=== PATIENT | female | born 1985 | race Caucasian/White ===

== ENCOUNTER 2017-06-27 21:00 | Emergency (ER) | payer BC ==
[2017-06-27 21:12] VITALS: TEMP 98.2; BMI 33.3
--- NOTE | 2017-06-27 22:52 | PDOC ---
History of Present Illness - General History Source: Patient Exam Limitations: No Limitations <Gianna Fofana - Last Filed: 06/28/17 02:00> <NedLolisalazar Dotson - Last Filed: 06/28/17 02:13> - General Chief Complaint: Palpitations Stated Complaint: WEAKNESS Time Seen by Provider: 06/27/17 22:24 - History of Present Illness Initial Comments: 06/28/17 00:36 The patient is a 31 year old female with a significant past medical history of CHARGE syndrome, multiple eye surgeries, renal transplant (tacrolimus and mycophenolate), and ASD repair (32 years ago) who presents to the ED with palpitations since this morning. The patient reports palpitations since waking up this morning. She states the palpitations worsen with ambulation and she also becomes short of breath, and symptoms are better at rest. Patient reports similar symptoms several months ago. Denies fever or chills. Denies calf pain or swelling. Denies abdominal pain, nausea, vomiting, or diarrhea. Denies chest pain. Denies any other symptoms. PCP: Dr. Thurman (Gianna Fofana) Past History <Gianna Fofana - Last Filed: 06/28/17 02:00> - Past Medical History Anemia: No Asthma: No Cancer: No Cardiac Disorders: Yes (congenital murmur) CVA: No COPD: No CHF: No Dementia: No Diabetes: No GI Disorders: No Disorders: Yes (BILATERAL KIDNEY TRANSPLANT, RIGHT KIDNAY NOT FUNCTIONAL, REJECTED) HTN: No Hypercholesterolemia: No Liver Disease: No Seizures: No Thyroid Disease: No - Surgical History Abdominal Surgery: No Appendectomy: No Cardiac Surgery: Yes (closure for congenital murmur AT 1 YR OF AGE) Cholecystectomy: No Lung Surgery: No Neurologic Surgery: No Orthopedic Surgery: Yes (bilateral hip replacements, right knee surgery) - Reproductive History (#): 1 Para: 0 Cervical CA: No Dysfunctional Uterine Bleeding: No Ectopic : No Endometrial CA: No Polycystic Ovaries: No Therapeutic (s) & number: No Tubal Ligation: No Spontaneous : 0 - Immunization History Immunization Up to Date: Yes - Suicide/Smoking/Psychosocial Hx Smoking Status: No Smoking History: Never smoked Have you smoked in the past 12 months: No Number of Cigarettes Smoked Daily: 0 Information on smoking cessation initiated: No Hx Alcohol Use: No Drug/Substance Use Hx: No Substance Use Type: None Hx Substance Use Treatment: No <Loli Marino - Last Filed: 06/28/17 02:13> - Past Medical History Allergies/Adverse Reactions: Allergies Allergy/AdvReac Type Severity Reaction Status Date / Time fariba Allergy Unknown Verified 06/27/17 21:12 No Known Drug Allergies Allergy Verified 06/27/17 21:12 Home Medications: Ambulatory Orders Tacrolimus [Prograf] 3 mg PO BID 03/02/15 Ferrous Sulfate 325 mg PO BID 11/02/15 Mycophenolate Sodium [Myfortic] 360 mg PO BID 11/02/15 Prednisone 5 mg PO DAILY 11/02/15 Oxycodone HCl/Acetaminophen [Percocet 5/325 -] 1 tab PO Q6H #16 tablet MDD 4 Cardiac Specific PMH - Complaint Specific PMHX Pacemaker: No <Loli Marino - Last Filed: 06/28/17 02:13> Review of Systems - Review of Systems Able to Perform ROS?: Yes All Other Systems: Reviewed and Negative <Gianna Fofana - Last Filed: 06/28/17 02:00> <Loli Marino - Last Filed: 06/28/17 02:13> - Review of Systems Comments:: 06/28/17 00:36 CONSTITUTIONAL: Absent: fever, chills, diaphoresis, generalized weakness, malaise, loss of appetite HEENT: Absent: rhinorrhea, nasal congestion, throat pain, throat swelling, difficulty swallowing, mouth swelling, ear pain, eye pain, visual Changes CARDIOVASCULAR: + palpitations, shortness of breath Absent: chest pain, syncope, irregular heart rate, lightheadedness, peripheral edema RESPIRATORY: Absent: cough, dyspnea with exertion, orthopnea, wheezing, stridor, hemoptysis GASTROINTESTINAL: Absent: abdominal pain, abdominal distension, nausea, vomiting, diarrhea, constipation, melena, hematochezia GENITOURINARY: Absent: dysuria, frequency, urgency, hesitancy, hematuria, flank pain, genital pain MUSCULOSKELETAL: Absent: myalgia, arthralgia, joint swelling SKIN: Absent: rash, itching, pallor HEMATOLOGIC/IMMUNOLOGIC: Absent: easy bleeding, easy bruising, lymphadenopathy, frequent infections ENDOCRINE: Absent: unexplained weight gain, unexplained weight loss, heat intolerance, cold intolerance NEUROLOGIC: Absent: headache, focal weakness or paresthesias, dizziness, unsteady gait, seizure, mental status changes, bladder or bowel incontinence PSYCHIATRIC: Absent: anxiety, depression, suicidal or homicidal ideation, hallucinations. (Gianna Fofana) *Physical Exam <Gianna Fofana - Last Filed: 06/28/17 02:00> <Loli Marino - Last Filed: 06/28/17 02:13> - Vital Signs Last Vital Signs Temp Pulse Resp BP Pulse Ox 98.2 F 97 H 22 145/80 100 06/27/17 21:06 06/27/17 21:06 06/27/17 21:06 06/27/17 21:06 06/27/17 21:06 - Physical Exam Comments: 06/28/17 00:37 GENERAL: Well developed, well nourished. Awake and alert. No acute distress. HEENT: Normocephalic, atraumatic. PERRLA, EOMI. No conjunctival pallor. Sclera are non- icteric. Moist mucous membranes. Oropharynx is clear. NECK: Supple. Full ROM. No JVD. Carotid pulses 2+ and symmetric, without bruits. No thyromegaly. NCo lymphadenopathy. CARDIOVASCULAR:+ Systolic murmur Regular rate and rhythm. No rubs, or gallops. Distal pulses are 2+ and symmetric. PULMONARY: No evidence of respiratory distress. Lungs clear to auscultation bilaterally. No wheezing, rales or rhonchi. ABDOMINAL: Soft. Non-tender. Non-distended. No rebound or guarding. No organomegaly. Normoactive bowel sounds. MUSCULOSKELETAL Normal range of motion at all joints. No bony deformities or tenderness. No CVA tenderness. EXTREMITIES: No cyanosis. No clubbing. No edema. No calf tenderness. SKIN: Warm and dry. Normal capillary refill. No rashes. No jaundice. NEUROLOGICAL: Alert, awake, appropriate. Cranial nerves 2-12 intact. No deficits to light touch and temperature in face, upper extremities and lower extremities. No motor deficits in the in face, upper extremities and lower extremities. Normoreflexic in the upper and lower extremities. Normal speech. Toes are down- going bilaterally. Gait is normal without ataxia. PSYCHIATRIC: Cooperative. Good eye contact. Appropriate mood and affect. (Gianna Fofaan) Heart Score/ECG Review <Gianna Fofana - Last Filed: 06/28/17 02:00> <Loli Marino - Last Filed: 06/28/17 02:13> #1 06/28/17 02:01 Vent. rate 100 bpm WI interval 132 ms QRS duration 88 ms Normal sinus rhythm (Gianna Fofana) ED Treatment Course - LABORATORY CBC & Chemistry Diagram: 06/28/17 00:14 06/28/17 00:14 <Gianna Fofana - Last Filed: 06/28/17 02:00> - LABORATORY CBC & Chemistry Diagram: 06/28/17 00:14 06/28/17 00:14 <Loli Marino - Last Filed: 06/28/17 02:13> - ADDITIONAL ORDERS Additional order review: Laboratory Results 06/28/17 06/28/17 06/28/17 00:14 00:14 00:14 PT with INR 11.30 INR 1.00 Sodium 140 Potassium 4.2 Chloride 109 H Carbon Dioxide 23 Anion Gap 8 BUN 27 H Creatinine 1.7 H Creat Clearance w eGFR 34.61 Random Glucose 111 H Calcium 8.9 Magnesium 2.1 Total Bilirubin 0.1 L D AST 9 L ALT 17 Alkaline Phosphatase 98 Creatine Kinase 61 Troponin I < 0.02 Total Protein 8.2 Albumin 3.2 L Serum , Qual Negative 06/28/17 00:14 RBC 3.53 L MCV 76.3 L MCHC 31.7 L RDW 14.7 D MPV 7.4 L Neutrophils % 70.0 Lymphocytes % 22.7 Monocytes % 6.0 Eosinophils % 0.6 Basophils % 0.7 - RADIOLOGY Radiology Studies Ordered: Category Date Time Status CHEST PA & LAT [RAD] Stat Radiology 06/28/17 01:06 Taken - Medications Given in the ED: ED Medications Discontinued Medications Generic Name Dose Route Start Last Admin Trade Name Freq PRN Reason Stop Dose Admin Aspirin 162 mg 06/27/17 22:53 06/28/17 00:18 Asa - PO 06/27/17 22:54 162 mg ONCE ONE Administration *DC/Admit/Observation/Transfer <Gianna Fofana - Last Filed: 06/28/17 02:00> <Loli Marino - Last Filed: 06/28/17 02:13> Diagnosis at time of Disposition: Palpitations - Discharge Dispostion Disposition: HOME Condition at time of disposition: Stable - Referrals Referrals: Jaylon Thurman MD [Primary Care Provider] - Baron Kulkarni MD [Staff Physician] - - Patient Instructions Printed Discharge Instructions: DI for Palpitations Additional Instructions: Please see your doctor this week Return for any worsening symptoms - Post Discharge Activity - Attestations Scribe Attestion: 06/28/17 00:37 Documentation prepared by Gianna Fofana, acting as medical pathologist for Loli Marino MD (Gianna Fofana)
[2017-06-27] MEDS ORDERED: ASPIRIN 81 MG CHEWABLE TABLETS PO ONE (22:53)
[2017-06-28] MEDS ORDERED: ASPIRIN 81 MG CHEWABLE TABLETS ONE (00:09)
[2017-06-28 00:30] LABS: BASO % 0.7 % (0-2.0); EOS % 0.6 % (0-4.5); HEMATOCRIT 26.9 % (32.4-45.2); HEMOGLOBIN 8.5 GM/dL (10.7-15.3); LYMPH % 22.7 % (8-40); MCH 24.2 pg (25.7-33.7); MCHC 31.7 g/dl (32.0-36.0); MEAN CELL VOLUME 76.3 fl (80-96); MEAN PLT VOLUME 7.4 fl (7.5-11.1); PLATELET COUNT 339 K/MM3 (134-434); RBC 3.53 M/mm3 (3.60-5.2); RDW 14.7 % (11.6-15.6); WHITE BLOOD COUNT 5.4 K/mm3 (4.0-10.0)
[2017-06-28 00:42] LABS: PROTHROMBIN TIME (PATIENT) 11.3 SEC (9.98-11.88)
[2017-06-28 00:53] LABS: ALBUMIN 3.2 g/dl (3.4-5.0); ANION GAP 8 (8-16); BILIRUBIN,TOTAL 0.1 mg/dL (0.2-1.0); BLOOD UREA NITROGEN 27 mg/dL (7-18); CALCIUM 8.9 mg/dL (8.5-10.1); CHLORIDE 109 mmol/L (98-107); CO2 23 mmol/L (21-32); CREATININE 1.7 mg/dL (0.55-1.02); GLUCOSE,RANDOM 111 mg/dL (74-106); MAGNESIUM 2.1 mg/dL (1.8-2.4); POTASSIUM 4.2 mmol/L (3.5-5.1); SGOT/AST 9 U/L (15-37); SGPT/ALT 17 U/L (12-78); SODIUM 140 mmol/L (136-145); TOT PROT 8.2 g/dl (6.4-8.2)
[2017-06-28 00:56] LABS: ALK PHOS 98 U/L (45-117)
[2017-06-28 02:42] VITALS: BP 104/80; PULSE 87
--- NOTE | 2017-06-28 13:02 | EKG ---
Test Reason : Blood Pressure : / mmHG Vent. Rate : 100 BPM Atrial Rate : 100 BPM P-R Int : 132 ms QRS Dur : 088 ms QT Int : 342 ms P-R-T Axes : 012 034 046 degrees QTc Int : 441 ms NORMAL SINUS RHYTHM NORMAL ECG WHEN COMPARED WITH ECG OF 02-NOV-2015 21:04, NO SIGNIFICANT CHANGE WAS FOUND Confirmed by AMBER HERNANDEZ MD ([id number]) on 06/28/2017 1:01:56 PM Referred By: Confirmed By:AMBER HERNANDEZ MD
== END 2017-06-28 02:42 | disposition home or self-care (01) ==
LOC: JER 21:00
DX: R00.2 Palpitations (principal); Q89.8 Other specified congenital malformations; Z94.0 Kidney transplant status
CPT/HCPCS: 36415; 71046-TC; 80053; 82550; 83735; 84484; 84703; 85025; 85610; 93005; 93010; 99282-25

== ENCOUNTER 2017-07-18 23:29 | Emergency (ER) | payer BC ==
[2017-07-18 23:45] VITALS: BP 154/90; PULSE 110; TEMP 99.3; BMI 30.1
--- NOTE | 2017-07-19 00:28 | PDOC ---
History of Present Illness - General Stated Complaint: FATIGUE Time Seen by Provider: 07/19/17 00:27 Past History - Past Medical History Allergies/Adverse Reactions: Allergies Allergy/AdvReac Type Severity Reaction Status Date / Time stoneypberry Allergy Unknown Verified 07/18/17 23:41 No Known Drug Allergies Allergy Verified 07/18/17 23:41 Home Medications: Ambulatory Orders Tacrolimus [Prograf] 3 mg PO BID 03/02/15 Mycophenolate Sodium [Myfortic] 360 mg PO BID 11/02/15 Prednisone 5 mg PO DAILY 11/02/15 Anemia: No Asthma: No Cancer: No Cardiac Disorders: Yes (congenital murmur) CVA: No COPD: No CHF: No Dementia: No Diabetes: No GI Disorders: No Disorders: Yes (BILATERAL KIDNEY TRANSPLANT, RIGHT KIDNAY NOT FUNCTIONAL, REJECTED) HTN: No Hypercholesterolemia: No Liver Disease: No Seizures: No Thyroid Disease: No - Surgical History Abdominal Surgery: No Appendectomy: No Cardiac Surgery: Yes (closure for congenital murmur AT 1 YR OF AGE) Cholecystectomy: No Lung Surgery: No Neurologic Surgery: No Orthopedic Surgery: Yes (bilateral hip replacements, right knee surgery) - Reproductive History (#): 1 Para: 0 Cervical CA: No Dysfunctional Uterine Bleeding: No Ectopic : No Endometrial CA: No Polycystic Ovaries: No Therapeutic (s) & number: No Tubal Ligation: No Spontaneous : 0 - Immunization History Immunization Up to Date: Yes - Suicide/Smoking/Psychosocial Hx Smoking Status: No Smoking History: Never smoked Have you smoked in the past 12 months: No Number of Cigarettes Smoked Daily: 0 Hx Alcohol Use: No Drug/Substance Use Hx: No Substance Use Type: None Hx Substance Use Treatment: No *Physical Exam - Vital Signs Last Vital Signs Temp Pulse Resp BP Pulse Ox 99.3 F 110 H 20 154/90 100 07/18/17 23:44 07/18/17 23:44 07/18/17 23:44 07/18/17 23:44 07/18/17 23:44 *DC/Admit/Observation/Transfer - Referrals Referrals: Jaylon Thurman MD [Primary Care Provider] - - Patient Instructions - Post Discharge Activity
--- NOTE | 2017-07-19 00:30 | PDOC ---
History of Present Illness - General Stated Complaint: FATIGUE Time Seen by Provider: 07/19/17 00:27 - History of Present Illness Initial Comments: 07/19/17 00:29 Ms. Catalan is a 31 yo female w/ pmh of CHARGE syndrome, eye surgeries, renal transplant on tacrolimus and mycophenolate, and distand ASD repair who presents w/ symptoms of nausea, cough, and vomiting that was triggered after she was exposed to cleaning solution on the bathroom floor of a [email or web address] e[employer]ier this evening. Ms. Catalan reports that she used the bathroom and was "in and out" in 2 minutes, but that her symptoms started immediately upon exiting. They have called the [employer] to report that cleaning solution noted on the floor was very strong. The patient denies chest pain, headache and dizziness. Denies fever, chills, diarrhea and constipation. Denies dysuria, frequency, urgency and hematuria. Allergies: Raspberry Past History - Past Medical History Allergies/Adverse Reactions: Allergies Allergy/AdvReac Type Severity Reaction Status Date / Time raspberry Allergy Unknown Verified 07/18/17 23:41 No Known Drug Allergies Allergy Verified 07/18/17 23:41 Home Medications: Ambulatory Orders Tacrolimus [Prograf] 3 mg PO BID 03/02/15 Mycophenolate Sodium [Myfortic] 360 mg PO BID 11/02/15 Prednisone 5 mg PO DAILY 11/02/15 Anemia: No Asthma: No Cancer: No Cardiac Disorders: Yes (congenital murmur) CVA: No COPD: No CHF: No Dementia: No Diabetes: No GI Disorders: No Disorders: Yes (BILATERAL KIDNEY TRANSPLANT, RIGHT KIDNAY NOT FUNCTIONAL, REJECTED) HTN: No Hypercholesterolemia: No Liver Disease: No Seizures: No Thyroid Disease: No - Surgical History Abdominal Surgery: No Appendectomy: No Cardiac Surgery: Yes (closure for congenital murmur AT 1 YR OF AGE) Cholecystectomy: No Lung Surgery: No Neurologic Surgery: No Orthopedic Surgery: Yes (bilateral hip replacements, right knee surgery) - Reproductive History (#): 1 Para: 0 Cervical CA: No Dysfunctional Uterine Bleeding: No Ectopic : No Endometrial CA: No Polycystic Ovaries: No Therapeutic (s) & number: No Tubal Ligation: No Spontaneous : 0 - Immunization History Immunization Up to Date: Yes - Suicide/Smoking/Psychosocial Hx Smoking Status: No Smoking History: Never smoked Have you smoked in the past 12 months: No Number of Cigarettes Smoked Daily: 0 Hx Alcohol Use: No Drug/Substance Use Hx: No Substance Use Type: None Hx Substance Use Treatment: No Review of Systems - Review of Systems Comments:: 07/19/17 00:55 GENERAL/CONSTITUTIONAL: No fever or chills. No weakness. HEAD, EYES, EARS, NOSE AND THROAT: No change in vision. No ear pain or discharge. No sore throat. CARDIOVASCULAR: No chest pain or shortness of breath RESPIRATORY: +Cough with associated nausea/vomiting as described. No wheezing or hemoptysis. GASTROINTESTINAL: No diarrhea or constipation. GENITOURINARY: No dysuria, frequency, or change in urination. MUSCULOSKELETAL: No joint or muscle swelling or pain. No neck or back pain. SKIN: No rash NEUROLOGIC: No headache, vertigo, loss of consciousness, or change in strength/ sensation. ENDOCRINE: No increased thirst. No abnormal weight change HEMATOLOGIC/LYMPHATIC: No anemia, easy bleeding, or history of blood clots. ALLERGIC/IMMUNOLOGIC: No hives or skin allergy. *Physical Exam - Vital Signs Last Vital Signs Temp Pulse Resp BP Pulse Ox 99.3 F 110 H 20 154/90 100 07/18/17 23:44 07/18/17 23:44 07/18/17 23:44 07/18/17 23:44 07/18/17 23:44 - Physical Exam Comments: 07/19/17 00:56 GENERAL: Awake, alert, and fully oriented, in no acute distress HEAD: No signs of trauma, normocephalic, atraumatic EYES: PERRLA, EOMI, sclera anicteric, conjunctiva clear ENT: Auricles normal inspection, hearing grossly normal, nares patent, oropharynx clear without exudates. Moist mucosa NECK: Normal ROM, supple, no lymphadenopathy, JVD, or masses LUNGS: No distress, speaks full sentences, clear to auscultation bilaterally HEART: Regular rate and rhythm, normal S1 and S2, no murmurs, rubs or gallops, peripheral pulses normal and equal bilaterally. ABDOMEN: Soft, nontender, normoactive bowel sounds. No guarding, no rebound. No masses EXTREMITIES: Normal inspection, Normal range of motion, no edema. No clubbing or cyanosis. NEUROLOGICAL: Cranial nerves II through XII grossly intact. Normal speech, normal gait, no focal sensorimotor deficits SKIN: Warm, Dry, normal turgor, no rashes or lesions noted. Medical Decision Making - Medical Decision Making 07/19/17 02:18 Ms. Catalan is a 31 yo female w/ pmh as described who presents for evaluation of n/v after chemical exposure. Patient denies any difficulty breathing and has no oral gardner, irritation noted, or other concerning airway symptoms. Chest XR negative for acute pathology. Patient reporting resolution of symptoms after being on 2L 02 for an hour with 4mg SL zofran. Will discharge w/ instructions to return as needed for return of symptoms. Patient verbalized understanding and agreement of plan and will comply. *DC/Admit/Observation/Transfer Diagnosis at time of Disposition: Chemical exposure - Discharge Dispostion Disposition: HOME - Referrals Referrals: Jaylon Thurman MD [Primary Care Provider] - - Patient Instructions Additional Instructions: You were evaluated today in the Emergency Room following your exposure to cleaning solution. Your chest x-ray did not show any concerning findings and your symptoms of nausea and vomiting went away after supplemental oxygen and oral anti-nausea medication. Please return to ER if any return of nausea, vomiting, pain, or other concerning symptoms. Follow-up with your primary care provider for further evaluation as needed. - Post Discharge Activity
[2017-07-19] MEDS ORDERED: ONDANSETRON *ODT* 4 MG TABLET SL ONE (00:47)
[2017-07-19] MEDS ORDERED: ONDANSETRON *ODT* 4 MG TABLET ONE (01:13)
== END 2017-07-19 02:42 | disposition home or self-care (01) ==
LOC: JER 23:29
PROC: 3E0337Z Introduction of Electrolytic and Water Balance Substance into Peripheral Vein, Percutaneous Approach (ICD-10-PCS; principal; 2017-07-18)
DX: H66.91 Otitis media, unspecified, right ear (principal); J32.9 Chronic sinusitis, unspecified; Q89.8 Other specified congenital malformations; Z94.0 Kidney transplant status
CPT/HCPCS: 71046-TC-FY; 84703; 99281-25

== ENCOUNTER 2017-07-20 16:14 | Emergency (ER) | payer BC ==
[2017-07-20 16:36] VITALS: BMI 33.3
--- NOTE | 2017-07-20 16:37 | PDOC ---
Rapid Medical Evaluation Time Seen by Provider: 07/20/17 16:31 Medical Evaluation: Allergies Allergy/AdvReac Type Severity Reaction Status Date / Time raspberry Allergy Unknown Verified 07/20/17 16:31 No Known Drug Allergies Allergy Verified 07/20/17 16:31 02 16:31 I have performed a brief in-person evaluation of this patient. The patient presents with a chief complaint of: fever, headaches, neck pain Pertinent physical exam findings: HR-130 No meningmus. Full ROM of neck. oropharynx clear. I have ordered the following: EKG, Tylenol, CBC, CMP, Blood cx, lactate, ua, ucx , upt, CXR The patient will proceed to the ED for further evaluation. Discharge Disposition - Diagnosis SIRS (systemic inflammatory response syndrome) - Referrals - Patient Instructions - Post Discharge Activity
[2017-07-20] MEDS ORDERED: ACETAMINOPHEN 500 MG TABLET (FP) PO ONE (16:39)
[2017-07-20 17:35] LABS: BASO % 0.2 % (0-2.0); HEMATOCRIT 31.3 % (32.4-45.2); HEMOGLOBIN 9.6 GM/dL (10.7-15.3); LYMPH % 6.9 % (8-40); MCH 23.3 pg (25.7-33.7); MCHC 30.6 g/dl (32.0-36.0); MEAN CELL VOLUME 76.2 fl (80-96); MEAN PLT VOLUME 7.9 fl (7.5-11.1); MONO % 4.8 % (3.8-10.2); NEUT % 88.1 % (42.8-82.8); PLATELET COUNT 353 K/MM3 (134-434); RDW 15.9 % (11.6-15.6)
[2017-07-20 17:37] LABS: VENOUS PC02 40.5 mmHg (38-52); VENOUS PH 7.36 (7.32-7.42); VENOUS PO2 31.2 mmHg (28-48)
[2017-07-20 17:43] LABS: INR 1.12 (0.82-1.09); PROTHROMBIN TIME (PATIENT) 12.7 SEC (9.98-11.88)
[2017-07-20 17:46] LABS: ACTIVATED PTT 29.9 SECONDS (26.9-34.4)
[2017-07-20 17:50] LABS: ALBUMIN 3.3 g/dl (3.4-5.0); ANION GAP 11 (8-16); BILIRUBIN,TOTAL 0.2 mg/dL (0.2-1.0); BLOOD UREA NITROGEN 19 mg/dL (7-18); CALCIUM 8.5 mg/dL (8.5-10.1); CHLORIDE 107 mmol/L (98-107); CO2 22 mmol/L (21-32); CREATININE 2.1 mg/dL (0.55-1.02); GLUCOSE,RANDOM 153 mg/dL (74-106); SGOT/AST 10 U/L (15-37); SGPT/ALT 15 U/L (12-78); SODIUM 140 mmol/L (136-145); TOT PROT 7.8 g/dl (6.4-8.2)
[2017-07-20 17:53] LABS: ALK PHOS 104 U/L (45-117)
[2017-07-20 17:59] LABS: URINE APPEARANCE CLOUDY; URINE BILIRUBIN NEGATIVE (NEGATIVE); URINE BLOOD 2+ (NEGATIVE); URINE COLOR YELLOW; URINE GLUCOSE (UA) NEGATIVE (NEGATIVE); URINE KETONE NEGATIVE (NEGATIVE); URINE NITRITE NEGATIVE (NEGATIVE); URINE UROBILINOGEN NEGATIVE mg/dL (0.2-1.0)
[2017-07-20 18:11] LABS: URINE LEUK ESTERASE 2+ (NEGATIVE); URINE PROTEIN 3+ (NEGATIVE)
[2017-07-20 18:41] LABS: EPI CELLS MANY /HPF (FEW); URINE BACTERIA RARE /hpf (NONE SEEN); URINE MUCUS RARE
--- NOTE | 2017-07-20 18:55 | PDOC ---
History of Present Illness - General Chief Complaint: SIRS, Suspected/Possible Stated Complaint: FATIGUE Time Seen by Provider: 07/20/17 16:31 History Source: Patient Exam Limitations: No Limitations - History of Present Illness Initial Comments: 07/20/17 18:52 31F w/ pmh of CHARGE syndrome, eye surgeries, renal transplant on tacrolimus and mycophenolate, and distand ASD repair who presents w/ symptoms of Fever (102 -103) and right sided neck pain. Patient states that on Wednesday she was exposed to a bathroom cleaned with bleach and started violently vomiting. But no symptoms of vomiting since then. 07/20/17 18:52 Past History - Past Medical History Allergies/Adverse Reactions: Allergies Allergy/AdvReac Type Severity Reaction Status Date / Time raspberry Allergy Unknown Verified 07/20/17 16:31 No Known Drug Allergies Allergy Verified 07/20/17 16:31 Home Medications: Ambulatory Orders Tacrolimus [Prograf] 3 mg PO BID 03/02/15 Mycophenolate Sodium [Myfortic] 360 mg PO BID 11/02/15 Prednisone 5 mg PO DAILY 11/02/15 Protriptyline HCl 5 mg PO HS 07/20/17 Anemia: No Asthma: No Cancer: No Cardiac Disorders: Yes (congenital murmur) CVA: No COPD: No CHF: No Dementia: No Diabetes: No GI Disorders: No Disorders: Yes (BILATERAL KIDNEY TRANSPLANT, RIGHT KIDNAY NOT FUNCTIONAL, REJECTED) HTN: No Hypercholesterolemia: No Liver Disease: No Seizures: No Thyroid Disease: No - Surgical History Abdominal Surgery: No Appendectomy: No Cardiac Surgery: Yes (closure for congenital murmur AT 1 YR OF AGE) Cholecystectomy: No Lung Surgery: No Neurologic Surgery: No Orthopedic Surgery: Yes (bilateral hip replacements, right knee surgery) - Reproductive History (#): 1 Para: 0 Cervical CA: No Dysfunctional Uterine Bleeding: No Ectopic : No Endometrial CA: No Polycystic Ovaries: No Therapeutic (s) & number: No Tubal Ligation: No Spontaneous : 0 - Immunization History Immunization Up to Date: Yes - Suicide/Smoking/Psychosocial Hx Smoking Status: No Smoking History: Never smoked Have you smoked in the past 12 months: No Number of Cigarettes Smoked Daily: 0 Hx Alcohol Use: No Drug/Substance Use Hx: No Substance Use Type: None Hx Substance Use Treatment: No Review of Systems - Review of Systems Able to Perform ROS?: Yes Is the patient limited [place] proficient: No Constitutional: Yes: Symptoms Reported, See HPI HEENTM: Yes: See HPI Respiratory: No: Symptoms reported Cardiac (ROS): No: Symptoms Reported ABD/GI: No: Symptoms Reported : No: Symptoms Reported Musculoskeletal: No: Symptoms Reported Integumentary: No: Symptoms Reported Neurological: No: Symptoms reported All Other Systems: Reviewed and Negative *Physical Exam - Vital Signs Last Vital Signs Temp Pulse Resp BP Pulse Ox 99.0 F 130 H 20 113/69 100 07/20/17 16:31 07/20/17 16:31 07/20/17 16:31 07/20/17 16:31 07/20/17 16:31 - Physical Exam General Appearance: Yes: Nourished, Appropriately Dressed. No: Apparent Distress HEENT: positive: EOMI, YENNI, Other Neck: positive: Tender (Right sided posterior triangle tenderness), Trachea midline, Tender lateral. negative: Rigid, Lymphadenopathy (R), Lymphadenopathy (L), Rigidity Respiratory/Chest: positive: Lungs Clear, Normal Breath Sounds. negative: Chest Tender, Respiratory Distress Cardiovascular: positive: Regular Rhythm, Regular Rate, S1, S2 Gastrointestinal/Abdominal: positive: Normal Bowel Sounds, Flat, Soft. negative : Tender Musculoskeletal: positive: Normal Inspection. negative: CVA Tenderness Extremity: positive: Normal Capillary Refill, Normal Inspection, Normal Range of Motion Integumentary: positive: Normal Color, Dry, Warm Neurologic: positive: Fully Oriented, Alert, Normal Mood/Affect ED Treatment Course - LABORATORY CBC & Chemistry Diagram: 07/20/17 17:05 07/20/17 17:05 - ADDITIONAL ORDERS Additional order review: Laboratory Results 07/20/17 07/20/17 07/20/17 17:20 17:05 17:05 PT with INR INR PTT (Actin FS) VBG pH POC VBG pCO2 POC VBG pO2 Mixed VBG HCO3 Sodium 140 Potassium 4.0 Chloride 107 Carbon Dioxide 22 Anion Gap 11 BUN 19 H Creatinine 2.1 H Creat Clearance w eGFR 27.12 Random Glucose 153 H Lactic Acid 1.9 Calcium 8.5 Total Bilirubin 0.2 D AST 10 L ALT 15 Alkaline Phosphatase 104 Creatine Kinase 59 Troponin I < 0.02 Total Protein 7.8 Albumin 3.3 L Urine Color Yellow Urine Appearance Cloudy Urine pH 5.0 Ur Specific Celina 1.020 Urine Protein 3+ H Urine Glucose (UA) Negative Urine Ketones Negative Urine Blood 2+ H Urine Nitrite Negative Urine Bilirubin Negative Urine Urobilinogen Negative Ur Leukocyte Esterase 2+ H Urine WBC (Auto) 34 Urine RBC (Auto) 95 Ur Epithelial Cells Many Urine Bacteria Rare Urine Mucus Rare 07/20/17 07/20/17 17:05 17:05 PT with INR 12.70 H INR 1.12 PTT (Actin FS) 29.9 VBG pH 7.36 POC VBG pCO2 40.5 POC VBG pO2 31.2 Mixed VBG HCO3 22.4 Sodium Potassium Chloride Carbon Dioxide Anion Gap BUN Creatinine Creat Clearance w eGFR Random Glucose Lactic Acid Calcium Total Bilirubin AST ALT Alkaline Phosphatase Creatine Kinase Troponin I Total Protein Albumin Urine Color Urine Appearance Urine pH Ur Specific Celina Urine Protein Urine Glucose (UA) Urine Ketones Urine Blood Urine Nitrite Urine Bilirubin Urine Urobilinogen Ur Leukocyte Esterase Urine WBC (Auto) Urine RBC (Auto) Ur Epithelial Cells Urine Bacteria Urine Mucus 07/20/17 17:20 Group A Strep Rapid Antigen - Final Throat 07/20/17 17:05 RBC 4.10 MCV 76.2 L MCHC 30.6 L RDW 15.9 H MPV 7.9 Neutrophils % 88.1 H D Lymphocytes % 6.9 L D Monocytes % 4.8 Eosinophils % 0.0 D Basophils % 0.2 - Medications Given in the ED: ED Medications Discontinued Medications Generic Name Dose Route Start Last Admin Trade Name Freq PRN Reason Stop Dose Admin Acetaminophen 1,000 mg 07/20/17 16:39 07/20/17 17:16 Tylenol - PO 07/20/17 16:40 1,000 mg ONCE ONE Administration Medical Decision Making - Medical Decision Making 07/20/17 18:56 Septic workup started in triage elevated white count, fever, tachycardic 07/20/17 19:29 Patient to receive soft tissue neck Ct no contrast. ?Opportunistic infection from immunosuppression? Patient signed out to Dr. Vences *DC/Admit/Observation/Transfer Diagnosis at time of Disposition: SIRS (systemic inflammatory response syndrome) - Referrals Referrals: Jaylon Thurman MD [Primary Care Provider] - - Patient Instructions - Post Discharge Activity
[2017-07-20 19:10] VITALS: BP 98/63
[2017-07-20] MEDS ORDERED: IBUPROFEN 600 MG TABLET (FP) PO ONE (19:19)
[2017-07-20] MEDS ORDERED: SODIUM CHLORIDE 500 ML IV STA (20:18)
--- NOTE | 2017-07-20 20:18 | PDOC ---
*Physical Exam - Vital Signs Last Vital Signs Temp Pulse Resp BP Pulse Ox 99.9 F H 122 H 18 98/63 98 07/20/17 19:08 07/20/17 19:08 07/20/17 19:08 07/20/17 19:08 07/20/17 19:08 <NedLoli Dotson - Last Filed: 07/20/17 21:17> - Vital Signs Last Vital Signs Temp Pulse Resp BP Pulse Ox 99.9 F H 122 H 18 98/63 98 07/20/17 19:08 07/20/17 19:08 07/20/17 19:08 07/20/17 19:08 07/20/17 19:08 - Physical Exam Comments: 07/20/17 21:03 GENERAL: Awake, alert, and fully oriented, in no acute distress, walking, eating , drinking fluids HEAD: No signs of trauma, normocephalic, atraumatic EYES: PERRLA, EOMI, sclera anicteric, conjunctiva clear ENT: Auricles normal inspection, hearing grossly normal, nares patent, oropharynx clear without exudates. Moist mucosa. Left TM clear. Right EM bulding with erythema. No signs of otitis externa NECK: Normal ROM, supple, no lymphadenopathy, JVD, or masses, no signs of meningmus LUNGS: No distress, speaks full sentences, clear to auscultation bilaterally HEART: Regular rate and rhythm, normal S1 and S2, no murmurs, rubs or gallops, peripheral pulses normal and equal bilaterally. EXTREMITIES: Normal inspection, Normal range of motion, no edema. No clubbing or cyanosis. NEUROLOGICAL: Cranial nerves II through XII grossly intact. Normal speech, normal gait, no focal sensorimotor deficits SKIN: Warm, Dry, normal turgor, no rashes or lesions noted. <Ned Vences - Last Filed: 07/20/17 21:37> ED Treatment Course - LABORATORY CBC & Chemistry Diagram: 07/20/17 17:05 07/20/17 17:05 - ADDITIONAL ORDERS Additional order review: Laboratory Results 07/20/17 07/20/17 07/20/17 19:27 17:20 17:05 PT with INR INR PTT (Actin FS) VBG pH POC VBG pCO2 POC VBG pO2 Mixed VBG HCO3 Sodium Potassium Chloride Carbon Dioxide Anion Gap BUN Creatinine Creat Clearance w eGFR Random Glucose Lactic Acid Calcium Total Bilirubin AST ALT Alkaline Phosphatase Creatine Kinase Troponin I Total Protein Albumin Serum , Qual Negative Urine Color Yellow Urine Appearance Cloudy Urine pH 5.0 Ur Specific Conway 1.020 Urine Protein 3+ H Urine Glucose (UA) Negative Urine Ketones Negative Urine Blood 2+ H Urine Nitrite Negative Urine Bilirubin Negative Urine Urobilinogen Negative Ur Leukocyte Esterase 2+ H Urine WBC (Auto) 34 Urine RBC (Auto) 95 Ur Epithelial Cells Many Urine Bacteria Rare Urine Mucus Rare Blood Type O POSITIVE Antibody Screen Negative 07/20/17 07/20/17 07/20/17 17:05 17:05 17:05 PT with INR INR PTT (Actin FS) VBG pH 7.36 POC VBG pCO2 40.5 POC VBG pO2 31.2 Mixed VBG HCO3 22.4 Sodium 140 Potassium 4.0 Chloride 107 Carbon Dioxide 22 Anion Gap 11 BUN 19 H Creatinine 2.1 H Creat Clearance w eGFR 27.12 Random Glucose 153 H Lactic Acid 1.9 Calcium 8.5 Total Bilirubin 0.2 D AST 10 L ALT 15 Alkaline Phosphatase 104 Creatine Kinase 59 Troponin I < 0.02 Total Protein 7.8 Albumin 3.3 L Serum , Qual Urine Color Urine Appearance Urine pH Ur Specific Conway Urine Protein Urine Glucose (UA) Urine Ketones Urine Blood Urine Nitrite Urine Bilirubin Urine Urobilinogen Ur Leukocyte Esterase Urine WBC (Auto) Urine RBC (Auto) Ur Epithelial Cells Urine Bacteria Urine Mucus Blood Type Antibody Screen 07/20/17 17:05 PT with INR 12.70 H INR 1.12 PTT (Actin FS) 29.9 VBG pH POC VBG pCO2 POC VBG pO2 Mixed VBG HCO3 Sodium Potassium Chloride Carbon Dioxide Anion Gap BUN Creatinine Creat Clearance w eGFR Random Glucose Lactic Acid Calcium Total Bilirubin AST ALT Alkaline Phosphatase Creatine Kinase Troponin I Total Protein Albumin Serum , Qual Urine Color Urine Appearance Urine pH Ur Specific Conway Urine Protein Urine Glucose (UA) Urine Ketones Urine Blood Urine Nitrite Urine Bilirubin Urine Urobilinogen Ur Leukocyte Esterase Urine WBC (Auto) Urine RBC (Auto) Ur Epithelial Cells Urine Bacteria Urine Mucus Blood Type Antibody Screen 07/20/17 17:20 Group A Strep Rapid Antigen - Final Throat 07/20/17 17:05 RBC 4.10 MCV 76.2 L MCHC 30.6 L RDW 15.9 H MPV 7.9 Neutrophils % 88.1 H D Lymphocytes % 6.9 L D Monocytes % 4.8 Eosinophils % 0.0 D Basophils % 0.2 - RADIOLOGY Radiology Studies Ordered: Category Date Time Status CHEST PA & LAT [RAD] Stat Radiology 07/20/17 19:13 Taken - Medications Given in the ED: ED Medications Discontinued Medications Generic Name Dose Route Start Last Admin Trade Name Reidq PRN Reason Stop Dose Admin Acetaminophen 1,000 mg 07/20/17 16:39 07/20/17 17:16 Tylenol - PO 07/20/17 16:40 1,000 mg ONCE ONE Administration Sodium Chloride 500 mls @ 500 mls/hr 07/20/17 20:18 07/20/17 20:28 Normal Saline - IV 07/20/17 21:17 500 mls/hr ASDIR STA Administration <Loli Marino - Last Filed: 07/20/17 21:17> - LABORATORY CBC & Chemistry Diagram: 07/20/17 17:05 07/20/17 17:05 - ADDITIONAL ORDERS Additional order review: Laboratory Results 07/20/17 07/20/17 07/20/17 19:27 17:20 17:05 PT with INR INR PTT (Actin FS) VBG pH POC VBG pCO2 POC VBG pO2 Mixed VBG HCO3 Sodium Potassium Chloride Carbon Dioxide Anion Gap BUN Creatinine Creat Clearance w eGFR Random Glucose Lactic Acid Calcium Total Bilirubin AST ALT Alkaline Phosphatase Creatine Kinase Troponin I Total Protein Albumin Serum , Qual Negative Urine Color Yellow Urine Appearance Cloudy Urine pH 5.0 Ur Specific Conway 1.020 Urine Protein 3+ H Urine Glucose (UA) Negative Urine Ketones Negative Urine Blood 2+ H Urine Nitrite Negative Urine Bilirubin Negative Urine Urobilinogen Negative Ur Leukocyte Esterase 2+ H Urine WBC (Auto) 34 Urine RBC (Auto) 95 Ur Epithelial Cells Many Urine Bacteria Rare Urine Mucus Rare Blood Type O POSITIVE Antibody Screen Negative 07/20/17 07/20/17 07/20/17 17:05 17:05 17:05 PT with INR INR PTT (Actin FS) VBG pH 7.36 POC VBG pCO2 40.5 POC VBG pO2 31.2 Mixed VBG HCO3 22.4 Sodium 140 Potassium 4.0 Chloride 107 Carbon Dioxide 22 Anion Gap 11 BUN 19 H Creatinine 2.1 H Creat Clearance w eGFR 27.12 Random Glucose 153 H Lactic Acid 1.9 Calcium 8.5 Total Bilirubin 0.2 D AST 10 L ALT 15 Alkaline Phosphatase 104 Creatine Kinase 59 Troponin I < 0.02 Total Protein 7.8 Albumin 3.3 L Serum , Qual Urine Color Urine Appearance Urine pH Ur Specific Conway Urine Protein Urine Glucose (UA) Urine Ketones Urine Blood Urine Nitrite Urine Bilirubin Urine Urobilinogen Ur Leukocyte Esterase Urine WBC (Auto) Urine RBC (Auto) Ur Epithelial Cells Urine Bacteria Urine Mucus Blood Type Antibody Screen 07/20/17 17:05 PT with INR 12.70 H INR 1.12 PTT (Actin FS) 29.9 VBG pH POC VBG pCO2 POC VBG pO2 Mixed VBG HCO3 Sodium Potassium Chloride Carbon Dioxide Anion Gap BUN Creatinine Creat Clearance w eGFR Random Glucose Lactic Acid Calcium Total Bilirubin AST ALT Alkaline Phosphatase Creatine Kinase Troponin I Total Protein Albumin Serum , Qual Urine Color Urine Appearance Urine pH Ur Specific Conway Urine Protein Urine Glucose (UA) Urine Ketones Urine Blood Urine Nitrite Urine Bilirubin Urine Urobilinogen Ur Leukocyte Esterase Urine WBC (Auto) Urine RBC (Auto) Ur Epithelial Cells Urine Bacteria Urine Mucus Blood Type Antibody Screen 07/20/17 17:20 Group A Strep Rapid Antigen - Final Throat 07/20/17 17:05 RBC 4.10 MCV 76.2 L MCHC 30.6 L RDW 15.9 H MPV 7.9 Neutrophils % 88.1 H D Lymphocytes % 6.9 L D Monocytes % 4.8 Eosinophils % 0.0 D Basophils % 0.2 - RADIOLOGY Radiology Studies Ordered: Category Date Time Status SOFT TISSUE NECK CT W/O CONTR [CT] Stat CT Scan 07/20/17 19:24 Ordered - Medications Given in the ED: ED Medications Discontinued Medications Generic Name Dose Route Start Last Admin Trade Name Freq PRN Reason Stop Dose Admin Acetaminophen 1,000 mg 07/20/17 16:39 07/20/17 17:16 Tylenol - PO 07/20/17 16:40 1,000 mg ONCE ONE Administration <Ned Vences - Last Filed: 07/20/17 21:37> Medical Decision Making - Medical Decision Making 07/20/17 21:[address] Quintero. 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 Vital signs at triage notable for fever and tachycardia. Fever now resolved, tachycardia remains. Believe patient is dry. Ear exam shows bulging TM. Exam not consistent with threat to airway or meningitis. Oropharynx clear. 07/20/17 21:07 Laboratory Tests 06/28/17 07/20/17 07/20/17 00:14 17:05 17:05 WBC 14.0 H D Hgb 9.6 L D Hct 31.3 L D Plt Count 353 INR 1.12 VBG pH BUN Creatinine 1.7 H Troponin I Ur Epithelial Cells 07/20/17 07/20/17 07/20/17 17:05 17:05 17:20 WBC Hgb Hct Plt Count INR VBG pH 7.36 BUN 19 H Creatinine 2.1 H Troponin I < 0.02 Ur Epithelial Cells Many CBC shows leukocytosis. Uncertain of significance given patient is on steroids. INR normal. VBG normal. Kidney function is 3.1, up from 1.7 on prior visit last month. Patient reports decreased PO intake. Eating [employer] now easily at bedside. UA contaminated. CT soft tissues pending. 07/20/17 21:23 CT neck shows possible sinusitis, but no other changes consistent with an acute infectious process. Does note mass in chest and chiari malformation, but known prior. Patient given copy of report with instructions to follow up with her primary care physician. HR 95. Will discharge patient home with PCP follow up. Patient's Laboratory Monitor is Dr Luc Mayo - [facility] [phone] <Ned Vences - Last Filed: 07/20/17 21:37> *DC/Admit/Observation/Transfer <Loli Marino - Last Filed: 07/20/17 21:17> - Discharge Dispostion Admit: No <Ned Vences - Last Filed: 07/20/17 21:37> Diagnosis at time of Disposition: Otitis media - Discharge Dispostion Disposition: HOME Condition at time of disposition: Good - Prescriptions Prescriptions: Amox-Tr/K Cl [Augmentin - 500Mg Tablet] 1 tab PO BID #28 tab - Referrals Referrals: Jaylon Thurman MD [Primary Care Provider] - - Patient Instructions Printed Discharge Instructions: Middle Ear Infection Additional Instructions: Please return if you have any new, worsening or concerning symptoms. You were prescribed an antibiotic in the ED today, your first dose was given in the ED. Your next dose is due tomorrow morning. Please take the full course of antibiotics, even if you start feeling better. Please follow up with your primary care physician this week. - Post Discharge Activity
[2017-07-20 21:20] VITALS: PULSE 95; TEMP 98.5
[2017-07-20] MEDS ORDERED: AMOX TR/POT CLAV 875MG/125MG TABLETS (FP) PO ONE (21:22)
--- NOTE | 2017-07-20 21:23 | PDOC ---
Attending Attestation - Resident Resident Name: Efrain Quintero - ED Attending Attestation I have performed the following: I have examined & evaluated the patient, The case was reviewed & discussed with the resident, I agree w/resident's findings & plan, Exceptions are as noted - HPI HPI: 07/20/17 21:18 31 yo female with h/o CHARGE syndrome s/p 2 kidney transplants presents with ear ,neck pain and fever - Physicial Exam PE: 07/20/17 21:23 petite 31 yo female with low grade fever head ncat ears++ fluid behind rt TM, erythematous , left TM is normal throat- uvula midline,no edema,no exudates neck supple, no nuchal rigidity lungs cta b.l cvs tachycardia abd nontender ext no edema,no erythema neuro axox3,ambulatory skin warm,dry - Medical Decision Making otitis/sinusitis started on augmentin
[2017-07-20] MEDS ORDERED: AMOX TR/POT CLAV 875MG/125MG TABLETS (FP) ONE (21:26)
== END 2017-07-20 21:50 | disposition home or self-care (01) ==
LOC: JER 16:14
DX: H66.91 Otitis media, unspecified, right ear (principal); Z94.0 Kidney transplant status; Q89.8 Other specified congenital malformations
CPT/HCPCS: 36415; 70490-TC; 71046-TC-FY; 80053; 81003; 81015; 82550; 82803; 83605; 84484; 84703; 85025; 85610; 85730; 86850; 86900; 86901; 87040; 87070; 87086; 87186; 87430; 99283-25

== ENCOUNTER 2018-07-03 20:26 | Inpatient (IN) | payer BC ==
[2018-07-03 20:43] VITALS: BMI 34.3
--- NOTE | 2018-07-03 23:16 | PDOC ---
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 Patient states the pain pounding pressure 10/10 assoc with nausea, a dry cough which makes her vomit and gag, photophobia. Took Excedrin, black coffee and coke without relief of symptoms. Deneis fever, neck stiffness. States headaches in the past but not like this. Patient states that she was told that if the HADDAD was not resolving and had pressure in the eye she should come to the ED. PMD: Dr. Jaylon Ayoub (Dr. Sabrina Mujica admits) NEURO: Dr. Mcclain Meds: proamidexole, prednisone, prograft, tacrolimus, mycophenolic ALL: NKDA GENERAL/CONSTITUTIONAL: [No fever or chills. No weakness. No weight change.] HEAD, EYES, EARS, NOSE AND THROAT: [No change in vision. No ear pain or discharge. No sore throat.] CARDIOVASCULAR: [No chest pain or shortness of breath.] RESPIRATORY: [No cough, wheezing, or hemoptysis.] GASTROINTESTINAL: (+)nausea, vomiting, (-) diarrhea or constipation. No rectal bleeding.] GENITOURINARY: [No dysuria, frequency, or change in urination.] MUSCULOSKELETAL: (+) joint or muscle swelling or pain. No neck or back pain.] SKIN AND BREASTS: [No rash or easy bruising.] NEUROLOGIC: (+) headache, (-) vertigo, loss of consciousness, or loss of sensation.] PSYCHIATRIC: [No depression or anxiety.] ENDOCRINE: [No increased thirst. No abnormal weight change.] HEMATOLOGIC/LYMPHATIC: [No anemia, easy bleeding, or history of blood clots.] ALLERGIC/IMMUNOLOGIC: [No hives or skin allergy. No latex allergy.] GENERAL: [The patient is awake, alert, and fully oriented, in no acute distress. ] HEAD: [Normal with no signs of trauma.] EYES: limited exam, sheilding eyes (+) photophobic, round and reactive to light , extraocular movements intact, sclera anicteric, conjunctiva clear.] ENT: [Ears normal, nares patent, oropharynx clear without exudates. Moist mucous membranes.] NECK: [Normal range of motion, supple without lymphadenopathy, JVD, or masses.] LUNGS: [Breath sounds equal, clear to auscultation bilaterally. No wheezes, and no crackles.] HEART: [Regular rate and rhythm, normal S1 and S2 without murmur, rub.] ABDOMEN: [Soft, nontender, normoactive bowel sounds, obese, No guarding, no rebound. No masses.] EXTREMITIES: [Normal range of motion, no edema. No clubbing or cyanosis. No cords, erythema, or tenderness.] NEUROLOGICAL: [Cranial nerves II through XII grossly intact. Normal speech, normal gait, cerebellar function intact.] PSYCH: [Normal mood, normal affect.] SKIN: [Warm, Dry, normal turgor, severely dry skin, no rashes or lesions noted.] <Chelsey Uriarte - Last Filed: 07/04/18 05:58> - General Chief Complaint: Pain Stated Complaint: BACK PAIN EYE PAIN VOMITING Time Seen by Provider: 07/03/18 21:28 Past History <Neda Atwood - Last Filed: 07/04/18 04:03> - Past Medical History Anemia: No Asthma: No Cancer: No Cardiac Disorders: Yes (congenital murmur) CVA: No COPD: No CHF: No Dementia: No Diabetes: No GI Disorders: No Disorders: Yes (BILATERAL KIDNEY TRANSPLANT, RIGHT KIDNAY NOT FUNCTIONAL, REJECTED) HTN: No Hypercholesterolemia: No Liver Disease: No Seizures: No Thyroid Disease: No - Surgical History Abdominal Surgery: No Appendectomy: No Cardiac Surgery: Yes (closure for congenital murmur AT 1 YR OF AGE) Cholecystectomy: No Lung Surgery: No Neurologic Surgery: No Orthopedic Surgery: Yes (bilateral hip replacements, right knee surgery) - Reproductive History (#): 1 Para: 0 Cervical CA: No Dysfunctional Uterine Bleeding: No Ectopic : No Endometrial CA: No Polycystic Ovaries: No Therapeutic (s) & number: No Tubal Ligation: No Spontaneous : 0 - Immunization History Immunization Up to Date: Yes - Suicide/Smoking/Psychosocial Hx Smoking Status: No Smoking History: Never smoked Have you smoked in the past 12 months: No Number of Cigarettes Smoked Daily: 0 Information on smoking cessation initiated: No Hx Alcohol Use: No Drug/Substance Use Hx: No Substance Use Type: None Hx Substance Use Treatment: No <Chelsey Uriarte - Last Filed: 07/04/18 05:58> - Past Medical History Allergies/Adverse Reactions: Allergies Allergy/AdvReac Type Severity Reaction Status Date / Time raspberry Allergy Unknown Verified 07/03/18 20:39 No Known Drug Allergies Allergy Verified 07/03/18 20:39 Home Medications: Ambulatory Orders Tacrolimus [Prograf] 3 mg PO BID 03/02/15 Mycophenolate Sodium [Myfortic] 360 mg PO BID 11/02/15 Prednisone 5 mg PO DAILY 11/02/15 Amox-Tr/K Cl [Augmentin - 500Mg Tablet] 1 tab PO BID #28 tab 07/20/17 Protriptyline HCl 5 mg PO HS 07/20/17 *Physical Exam - Vital Signs Last Vital Signs Temp Pulse Resp BP Pulse Ox 98.3 F 74 18 153/81 100 07/03/18 20:40 07/03/18 20:40 07/03/18 20:40 07/03/18 20:40 07/03/18 20:40 <Neda Atwood - Last Filed: 07/04/18 04:03> - Vital Signs Last Vital Signs Temp Pulse Resp BP Pulse Ox 98.3 F 74 18 153/81 100 07/03/18 20:40 07/03/18 20:40 07/03/18 20:40 07/03/18 20:40 07/03/18 20:40 <Chelsey Uriarte - Last Filed: 07/04/18 05:58> Moderate Sedation - Procedure Monitoring Vital Signs: Procedure Monitoring Vital Signs Temperature 98.3 F 07/03/18 20:40 Pulse Rate 74 07/03/18 20:40 Respiratory Rate 18 07/03/18 20:40 Blood Pressure 153/81 07/03/18 20:40 O2 Sat by Pulse Oximetry (%) 100 07/03/18 20:40 <Neda Atwood - Last Filed: 07/04/18 04:03> - Procedure Monitoring Vital Signs: Procedure Monitoring Vital Signs Temperature 98.3 F 07/03/18 20:40 Pulse Rate 74 07/03/18 20:40 Respiratory Rate 18 07/03/18 20:40 Blood Pressure 153/81 07/03/18 20:40 O2 Sat by Pulse Oximetry (%) 100 07/03/18 20:40 <Chelsey Uriarte - Last Filed: 07/04/18 05:58> Heart Score/ECG Review - ECG Intrepretation Rhythm: Regular Rhythm - [place]: Normal - P and DE Atrial Enlargement: Right Prominent R with upright T in V1 (true posterior TN): No Delta Wave(s) Present: No - QRS Poor R Wave Progression: No Q Wave Present: No - ST and T Early Repolarization: No Non Specific ST-T Wave changes: No Flattened T Waves: No Prolonged Q-T Interval: No - ECG Impressions Normal ECG: Yes Non-specific ST Elevation: No Ischemic Changes: No Bradycardia: No <Neda Atwood - Last Filed: 07/04/18 04:03> ED Treatment Course - LABORATORY CBC & Chemistry Diagram: 07/03/18 23:30 07/03/18 23:30 - ADDITIONAL ORDERS Additional order review: Laboratory Results 07/03/18 07/03/18 07/03/18 23:30 23:30 23:30 PT with INR 11.40 INR 0.97 Sodium 138 Potassium 4.0 Chloride 112 H Carbon Dioxide 20 L Anion Gap 7 L BUN 32 H Creatinine 1.9 H Creat Clearance w eGFR 30.26 Random Glucose 95 Calcium 8.4 L Total Bilirubin 0.1 L AST 13 L ALT 20 Alkaline Phosphatase 94 Total Protein 8.4 H Albumin 3.4 Urine Color Straw Urine Appearance Clear Urine pH 6.0 Ur Specific Melbeta 1.012 Urine Protein 2+ H Urine Glucose (UA) Negative Urine Ketones Negative Urine Blood Negative Urine Nitrite Negative Urine Bilirubin Negative Urine Urobilinogen Negative Ur Leukocyte Esterase Negative Urine WBC (Auto) 2 Urine RBC (Auto) 1 Ur Epithelial Cells Few Urine Bacteria Rare Urine Mucus Rare Urine HCG, Qual Negative 07/03/18 23:30 RBC 3.53 L MCV 85.1 MCHC 34.1 RDW 14.5 MPV 7.7 Neutrophils % 63.0 D Lymphocytes % 29.0 D Monocytes % 5.5 Eosinophils % 1.4 D Basophils % 1.1 D - Medications Given in the ED: ED Medications Discontinued Medications Generic Name Dose Route Start Last Admin Trade Name Dimitry WHITE Reason Stop Dose Admin Acetaminophen 1,000 mg 07/04/18 01:54 07/04/18 02:22 Ofirmev Injection - IVPB 07/04/18 01:55 1,000 mg ONCE ONE Administration Metoclopramide HCl 10 mg 07/04/18 00:37 07/04/18 01:49 Reglan Injection - IVPUSH 07/04/18 00:38 10 mg ONCE ONE Administration Morphine Sulfate 4 mg 07/03/18 23:20 07/03/18 23:59 Morphine Injection - IVPUSH 07/03/18 23:21 4 mg ONCE ONE Administration <Neda Atwood - Last Filed: 07/04/18 04:03> - LABORATORY CBC & Chemistry Diagram: 07/03/18 23:30 07/03/18 23:30 <Chelsey Uriarte - Last Filed: 07/04/18 05:58> Medical Decision Making - Medical Decision Making 07/03/18 22:37 Patient is a 32 year old female with h/o Chiari malformation, kidney transplant on immunosuppuressant drugs, ASD with open heart repair, 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 Patient states the pain pounding pressure 10/10 assoc with nausea, a dry cough which makes her vomit and gag, photophobia. Took Excedrin, black coffee and coke without relief of symptoms. Deneis fever, neck stiffness. Differential diagnosis: Migraine headache secondary to Chiari syndrome Labs, CT head Possible admission for LP Neuro consult Patient not improved with morphine given Tylenol and Reglan IV 07/04/18 03:15 Patient Full Name: TORY KINSEY Patient Accession No: [id number] Patient : 1985 Reason for Exam: HEADACHE Referring Physician: Patient Name: TIO SPEARS THIS IS A PRELIMINARY REPORT FROM [facility] DATE OF SERVICE: 2018-07-04 01:18:50 IMAGES: [id number] EXAM: HEAD CT WITHOUT CONTRAST HISTORY: Headache Chiari syndrome COMPARISON: None. FINDINGS: There is moderate hydrocephalus involving the lateral ventricles. Chiari 1 malformation is noted. The ventricular system is midline . The sulcal pattern is normal for the patient's age. There is no bleed, mass, extra-axial fluid collection or mass effect. No skull fracture or skull lesion is identified. The visualized paranasal sinuses and mastoid air cells are clear. IMPRESSION: Moderate hydrocephalus and Chiari 1 malformation. One or more of the following dose reduction techniques were used: automated exposure control, adjustment of the mA and/or kV according to patient size, use of iterative reconstructive technique. THIS DOCUMENT HAS BEEN ELECTRONICALLY SIGNED Arnulfo Hernandez MD 07/04/2018 01:40 EST Crystal. Please call [facility] [phone] ([phone]) with questions. INTERPRETING RADIOLOGIST: Michael Hernandez MD Electronically Signed: Jul 04, 2018 01:41AM EST 07/04/18 04:21 Patient currently sleeping 07/04/18 05:23 Now awake c/o slight HADDAD, given Reglan 10mg IV. Optho consult place Dr. Gipson <Chelsey Uriarte - Last Filed: 07/04/18 05:58> *DC/Admit/Observation/Transfer <Neda Atwood - Last Filed: 07/04/18 04:03> - Discharge Dispostion Decision to Admit order: Yes <Chelsey Uriarte - Last Filed: 07/04/18 05:58> Diagnosis at time of Disposition: Chiari I malformation, Chiari syndrome Headache Qualifiers: Headache type: unspecified Headache chronicity pattern: acute headache Intractability: intractable Qualified Code(s): R51 - Headache - Discharge Dispostion Condition at time of disposition: Stable
[2018-07-03] MEDS ORDERED: morphine CARPU-JECT 4 MG/1 ML DISP.SYRIN IVPUSH ONE (23:20)
[2018-07-03] MEDS ORDERED: SODIUM CHLORIDE 1,000 ML IV SCH (23:30)
[2018-07-03] MEDS ORDERED: morphine SULFATE 4 MG/ML VIAL ONE (23:47)
[2018-07-03 23:52] LABS: BASO % 1.1 % (0-2.0); EOS % 1.4 % (0-4.5); HEMOGLOBIN 10.2 GM/dL (10.7-15.3); MCHC 34.1 g/dl (32.0-36.0); MEAN CELL VOLUME 85.1 fl (80-96); MEAN PLT VOLUME 7.7 fl (7.5-11.1); MONO % 5.5 % (3.8-10.2); PLATELET COUNT 345 K/MM3 (134-434); RBC 3.53 M/mm3 (3.60-5.2); RDW 14.5 % (11.6-15.6); WHITE BLOOD COUNT 6.1 K/mm3 (4.0-10.0)
[2018-07-03 23:57] LABS: HCG,QUALITATIVE URINE Negative
[2018-07-03 23:58] LABS: URINE APPEARANCE CLEAR; URINE BILIRUBIN NEGATIVE (<2.0 mg/dL); URINE COLOR STRAW; URINE GLUCOSE (UA) NEGATIVE (NEGATIVE); URINE KETONE NEGATIVE (NEGATIVE); URINE LEUK ESTERASE NEGATIVE (NEGATIVE); URINE NITRITE NEGATIVE (NEGATIVE); URINE PROTEIN 2+ (NEGATIVE); URINE UROBILINOGEN NEGATIVE mg/dL (0.2-1.0)
[2018-07-04 00:06] LABS: INR 0.97 (0.83-1.09); PROTHROMBIN TIME (PATIENT) 11.4 SEC (9.7-13.0)
[2018-07-04 00:15] LABS: ALBUMIN 3.4 g/dl (3.4-5.0); ALK PHOS 94 U/L (45-117); ANION GAP 7 MMOL/L (8-16); BILIRUBIN,TOTAL 0.1 mg/dL (0.2-1); BLOOD UREA NITROGEN 32 mg/dL (7-18); CALCIUM 8.4 mg/dL (8.5-10.1); CHLORIDE 112 mmol/L (98-107); CO2 20 mmol/L (21-32); CREATININE 1.9 mg/dL (0.55-1.3); GLUCOSE,RANDOM 95 mg/dL (74-106); SGOT/AST 13 U/L (15-37); SGPT/ALT 20 U/L (13-61); SODIUM 138 mmol/L (136-145); TOT PROT 8.4 g/dl (6.4-8.2)
[2018-07-04] MEDS ORDERED: METOCLOPRAMIDE HCL INJECTION 10 MG/2 ML VIAL IVPUSH ONE ×2 (00:37→05:18)
[2018-07-04 00:59] LABS: EPI CELLS FEW /HPF (FEW); URINE BACTERIA RARE /hpf (NONE SEEN); URINE MUCUS RARE
[2018-07-04] MEDS ORDERED: METOCLOPRAMIDE HCL INJECTION 10 MG/2 ML VIAL ONE ×2 (01:30→06:37)
[2018-07-04] MEDS ORDERED: ACETAMINOPHEN 1000 MG/100 ML VIAL (NON FORMULARY) IVPB ONE (01:54)
[2018-07-04] MEDS ORDERED: ACETAMINOPHEN INJECTION 100 ML IVPB ONE (02:17)
[2018-07-04] MEDS ORDERED: ACETAMINOPHEN 1000 MG/100 ML VIAL (NON FORMULARY) IVPB PRN (07:33)
--- NOTE | 2018-07-04 07:41 | HP ---
CHIEF COMPLAINT: Headache PCP: Dr. 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 Who presents to the ED with frontal headache ER course was notable for: (1) Head CT- hydrocephalus, Chiari malformation (2) (3) Recent Travel: None PAST MEDICAL HISTORY: See HPI PAST SURGICAL HISTORY: See HPI Social History: Smoking: Never smoked Alcohol: None Drugs: None Family History: Allergies raspberry Allergy (Unknown, Verified 07/03/18 20:39) No Known Drug Allergies Allergy (Verified 07/03/18 20:39) HOME MEDICATIONS: Home Medications Medication Instructions Recorded Tacrolimus [Prograf] 3 mg PO BID 03/02/15 Mycophenolate Sodium [Myfortic] 360 mg PO BID 11/02/15 Prednisone 5 mg PO DAILY 11/02/15 Amox-Tr/K Cl [Augmentin - 500Mg 1 tab PO BID #28 tab 07/20/17 Tablet] Protriptyline HCl 5 mg PO HS 07/20/17 REVIEW OF SYSTEMS CONSTITUTIONAL: Absent: fever, chills, diaphoresis, generalized weakness, malaise, loss of appetite, weight change HEENT: Photophobia Absent: rhinorrhea, nasal congestion, throat pain, throat swelling, difficulty swallowing, mouth swelling, ear pain, eye pain, visual changes CARDIOVASCULAR: Absent: chest pain, syncope, palpitations, irregular heart rate, lightheadedness , peripheral edema RESPIRATORY: Absent: cough, shortness of breath, dyspnea with exertion, orthopnea, wheezing, stridor, hemoptysis GASTROINTESTINAL: Absent: abdominal pain, abdominal distension, nausea, vomiting, diarrhea, constipation, melena, hematochezia GENITOURINARY: Absent: dysuria, frequency, urgency, hesitancy, hematuria, flank pain, genital pain MUSCULOSKELETAL: Absent: myalgia, arthralgia, joint swelling, back pain, neck pain SKIN: Absent: rash, itching, pallor HEMATOLOGIC/IMMUNOLOGIC: Absent: easy bleeding, easy bruising, lymphadenopathy, frequent infections ENDOCRINE: Absent: unexplained weight gain, unexplained weight loss, heat intolerance, cold intolerance NEUROLOGIC: headache Absent: focal weakness or paresthesias, dizziness, unsteady gait, seizure, mental status changes, bladder or bowel incontinence PSYCHIATRIC: Absent: anxiety, depression, suicidal or homicidal ideation, hallucinations. PHYSICAL EXAMINATION Vital Signs - 24 hr 07/03/18 20:40 Temperature 98.3 F Pulse Rate 74 Respiratory 18 Rate Blood Pressure 153/81 O2 Sat by Pulse 100 Oximetry (%) GENERAL: Awake, alert, and fully oriented, in no acute distress. HEAD: Normal with no signs of trauma. EYES: Pupils equal, round and reactive to light, extraocular movements intact, sclera anicteric, conjunctiva clear. No lid lag. EARS, NOSE, THROAT: Ears normal, nares patent, oropharynx clear without exudates. Moist mucous membranes. NECK: Normal range of motion, supple without lymphadenopathy, JVD, or masses. LUNGS: Breath sounds equal, clear to auscultation bilaterally. No wheezes, and no crackles. No accessory muscle use. HEART: Regular rate and rhythm, normal S1 and S2 without murmur, rub or gallop. ABDOMEN: Soft, nontender, not distended, normoactive bowel sounds, no guarding, no rebound, no masses. No hepatomegaly or splenomegaly. MUSCULOSKELETAL: Normal range of motion at all joints. No bony deformities or tenderness. No CVA tenderness. UPPER EXTREMITIES: 2+ pulses, warm, well-perfused. No cyanosis. No clubbing. No peripheral edema. LOWER EXTREMITIES: 2+ pulses, warm, well-perfused. No calf tenderness. No peripheral edema. NEUROLOGICAL: Cranial nerves II-XII intact. Normal speech. Gait not observed. PSYCHIATRIC: Cooperative. Good eye contact. Appropriate mood and affect. SKIN: Warm, dry, normal turgor, no rashes or lesions noted, normal capillary refill. Laboratory Results - last 24 hr 07/03/18 07/03/18 07/03/18 23:30 23:30 23:30 WBC 6.1 RBC 3.53 L Hgb 10.2 L Hct 30.0 L MCV 85.1 MCH 29.0 D MCHC 34.1 RDW 14.5 Plt Count 345 MPV 7.7 Absolute Neuts (auto) 3.8 Neutrophils % 63.0 D Lymphocytes % 29.0 D Monocytes % 5.5 Eosinophils % 1.4 D Basophils % 1.1 D Nucleated RBC % 0 PT with INR 11.40 INR 0.97 Sodium 138 Potassium 4.0 Chloride 112 H Carbon Dioxide 20 L Anion Gap 7 L BUN 32 H Creatinine 1.9 H Creat Clearance w eGFR 30.26 Random Glucose 95 Calcium 8.4 L Total Bilirubin 0.1 L AST 13 L ALT 20 Alkaline Phosphatase 94 Total Protein 8.4 H Albumin 3.4 Urine Color Urine Appearance Urine pH Ur Specific [place] Urine Protein Urine Glucose (UA) Urine Ketones Urine Blood Urine Nitrite Urine Bilirubin Urine Urobilinogen Ur Leukocyte Esterase Urine WBC (Auto) Urine RBC (Auto) Ur Epithelial Cells Urine Bacteria Urine Mucus Urine HCG, Qual 07/03/18 23:30 WBC RBC Hgb Hct MCV MCH MCHC RDW Plt Count MPV Absolute Neuts (auto) Neutrophils % Lymphocytes % Monocytes % Eosinophils % Basophils % Nucleated RBC % PT with INR INR Sodium Potassium Chloride Carbon Dioxide Anion Gap BUN Creatinine Creat Clearance w eGFR Random Glucose Calcium Total Bilirubin AST ALT Alkaline Phosphatase Total Protein Albumin Urine Color Straw Urine Appearance Clear Urine pH 6.0 Ur Specific [place] 1.012 Urine Protein 2+ H Urine Glucose (UA) Negative Urine Ketones Negative Urine Blood Negative Urine Nitrite Negative Urine Bilirubin Negative Urine Urobilinogen Negative Ur Leukocyte Esterase Negative Urine WBC (Auto) 2 Urine RBC (Auto) 1 Ur Epithelial Cells Few Urine Bacteria Rare Urine Mucus Rare Urine HCG, Qual Negative ASSESSMENT/PLAN: This is a 32 y/o woman admitted for Intractable HADDAD, Chiari Malformation for further evaluation of their emergent condition. Problem List - Problem (1) Headache Code(s): R51 - HEADACHE Qualifiers: Headache type: unspecified Headache chronicity pattern: acute headache Intractability: intractable Qualified Code(s): R51 - Headache Visit type - Emergency Visit Emergency Visit: Yes ED Registration Date: 07/03/18 Care time: The patient presented to the Emergency Department on the above date and was hospitalized for further evaluation of their emergent condition. - New Patient This patient is new to me today: Yes Date on this admission: 07/04/18 - Critical Care Critical Care patient: No
[2018-07-04 08:09] LABS: BASO % 0.5 % (0-2.0); EOS % 1.8 % (0-4.5); HEMATOCRIT 27.9 % (32.4-45.2); HEMOGLOBIN 9.5 GM/dL (10.7-15.3); LYMPH % 35.7 % (8-40); MEAN CELL VOLUME 85.4 fl (80-96); MEAN PLT VOLUME 7.3 fl (7.5-11.1); MONO % 7.8 % (3.8-10.2); NEUT % 54.2 % (42.8-82.8); PLATELET COUNT 260 K/MM3 (134-434); RBC 3.27 M/mm3 (3.60-5.2); RDW 14.3 % (11.6-15.6); WHITE BLOOD COUNT 4.5 K/mm3 (4.0-10.0)
[2018-07-04 08:26] LABS: ANION GAP 9 MMOL/L (8-16); BLOOD UREA NITROGEN 28 mg/dL (7-18); CALCIUM 8.1 mg/dL (8.5-10.1); CHLORIDE 114 mmol/L (98-107); CO2 17 mmol/L (21-32); CREATININE 1.9 mg/dL (0.55-1.3); GLUCOSE,RANDOM 131 mg/dL (74-106); POTASSIUM 3.5 mmol/L (3.5-5.1); SODIUM 140 mmol/L (136-145)
--- NOTE | 2018-07-04 09:50 | EKG ---
Test Reason : Blood Pressure : / mmHG Vent. Rate : 076 BPM Atrial Rate : 076 BPM P-R Int : 140 ms QRS Dur : 072 ms QT Int : 366 ms P-R-T Axes : 023 024 015 degrees QTc Int : 411 ms NORMAL SINUS RHYTHM NORMAL ECG WHEN COMPARED WITH ECG OF 28-JUN-2017 00:22, NO SIGNIFICANT CHANGE WAS FOUND Confirmed by AMBER HERNANDEZ MD ([id number]) on 07/04/2018 9:50:36 AM Referred By: Confirmed By:AMBER HERNANDEZ MD
--- NOTE | 2018-07-04 10:52 | PN ---
Progress Note (short form) - Note Progress Note: pt seen/ examined chart reviewed. Awake and comfortable At present denies headache Reports much better Vital Signs Temp 97.8 F 07/04/18 07:35 Pulse 70 07/04/18 08:56 Resp 18 07/04/18 08:56 BP 114/72 07/04/18 08:56 Pulse Ox 100 07/04/18 07:35 Intake & Output 07/03/18 07/03/18 07/04/18 11:59 23:59 11:59 Weight 170 lb 170 lb Other: Voiding Method Toilet Height 4 ft 11 in 4 ft 11 in Body Mass Index (BMI) 34.3 34.3 Weight Measurement Method Est/Stated by Patient Active Medications Acetaminophen (Ofirmev Injection -) 1,000 mg IVPB Q6H PRN PRN Reason: PAIN OR FEVER Sodium Chloride (Normal Saline -) 1,000 mls @ 125 mls/hr IV ASDIR MICKEY Last Admin: 07/03/18 23:59 Dose: 125 mls/hr Non-Formulary Medication (Mycophenolate Sodium [Myfortic]) 360 mg PO BID MICKEY Non-Formulary Medication (Protriptyline Hcl [Protriptyline Hcl]) 5 mg PO HS MICKEY Prednisone (Deltasone -) 5 mg PO DAILY MICKEY Tacrolimus (Prograf) 5 mg PO AM MICKEY Tacrolimus (Prograf) 4 mg PO HS MICKEY CBC, BMP 07/04/18 07:45 07/04/18 07:45 CT scan reviewed physical exam Awake and comfortable Neck supple-- Lungs clear CVS S1 and S2 regular abdomen-Soft Extremities-no edema Neuro-alert and awake Assessment and plan headache continue present care and neurology to follow Will follow Monitor lites Avoid nephrotoxins Problem List - Problems (1) Renal insufficiency Code(s): N28.9 - DISORDER OF KIDNEY AND URETER, UNSPECIFIED (3) Headache Code(s): R51 - HEADACHE Qualifiers: Headache type: unspecified Headache chronicity pattern: acute headache Intractability: intractable Qualified Code(s): R51 - Headache
--- NOTE | 2018-07-04 16:04 | CONSULT ---
Consult Consult Specialty:: Ophthalmology - History of Present Illness Chief Complaint: pressure pain behind eyes especially right eye as well as headache. Has since resolved. - History Source History Provided By: Patient, Family Member - Past Medical History ...LMP: 06/17/18 - Alcohol/Substance Use Hx Alcohol Use: No - Smoking History Smoking history: Never smoked Have you smoked in the past 12 months: No Aproximately how many cigarettes per day: 0 Home Medications - Allergies Allergies/Adverse Reactions: Allergies Allergy/AdvReac Type Severity Reaction Status Date / Time raspberry Allergy Unknown Verified 07/03/18 20:39 No Known Drug Allergies Allergy Verified 07/03/18 20:39 - Home Medications Home Medications: Ambulatory Orders Tacrolimus [Prograf] 5 mg PO AM 03/02/15 Mycophenolate Sodium [Myfortic] 360 mg PO BID 11/02/15 Prednisone 5 mg PO DAILY 11/02/15 Protriptyline HCl 5 mg PO HS 07/20/17 Tacrolimus Anhydrous [Prograf] 4 mg PO HS 07/04/18 Review of Systems - Review of Systems Eyes: reports: Eye Pain, Photophobia Physical Exam Vital Signs: Vital Signs Temperature 97.8 F 07/04/18 07:35 Pulse Rate 72 07/04/18 13:00 Respiratory Rate 18 07/04/18 13:00 Blood Pressure 120/60 07/04/18 13:00 O2 Sat by Pulse Oximetry (%) 100 07/04/18 07:35 Eyes: Yes: Conjunctiva Clear, EOM Intact (Exophoria), PERRL (Irregular pupils secondary to coloboma OU.), Other (Va 20/30 OU tested at near. IOP 18 mmHg OU. Dilated retinal exam (1% tropicamide OU) exam significant for retinal colobomas no affecting posterior fundus. Optic discs appear pink and sharp.) Labs: CBC, BMP 07/04/18 07:45 07/04/18 07:45 Assessment/Plan Known history of Bilateral anterior and posterior colobomas as well as strabismus. No acute ocular pathology.
[2018-07-04] MEDS ORDERED: ACETAMINOPHEN 500 MG TABLET (FP) PO PRN (17:50)
[2018-07-04] MEDS ORDERED: PT OWN MED DRAWER 7, Y5N ONE (20:40)
[2018-07-04] MEDS: MYCOPHENOLATE SODIUM 360 MG TABLET.DR PO SCH (21:38)
[2018-07-04] MEDS ORDERED: TACROLIMUS ANHYDROUS 1 MG CAPSULE PO SCH (22:00)
[2018-07-04] MEDS ORDERED: NORTRIPTYLINE HCL 10 MG CAPSULE PO SCH (22:00)
[2018-07-04] MEDS ORDERED: PROTRIPTYLINE HCL 5 MG PO SCH (22:00)
--- NOTE | 2018-07-04 22:22 | CONSULT ---
Consult - text type - Consultation Consultation Note: NEUROLOGY CONSULTATION is greatly appreciated: This 32 yo RH woman with complex medical history of CHARGE Syndrome, s/p renal transplants x 2, Nephrotic syndrome, on Tacrolimus, prednisone, and mycophenylate. Known to me with Arnold-Chiari Syndrome, stable, chronic hydrocephalus, migraine headaches and Restless Legs Syndrome (RLS). Leg pains and insomnia are markedly improved on Pramipexole 0.25 mg HS. In the past, Headaches resolved on Protriptyline 5 mg HS but patient has done well OFF the med since last summer. Now admitted after 3 day long headache with nausea, vomiting, photophobia c/w her chronic headaches. Headache broke after IV MS and metaclopramide induced sleep. Now headache free and wants to go home. CT of head (reviewed): Stable, moderate, hydrocephlus with normal 3 rd and 4 th ventricles and low-lying tonsils c/w Arnold-Chiari Type I. KULDEEP: No supple. No bruits. L achilles contracture. NEURO: MS/Speech: Normal CN II-XII: Normal Motor: No drift or tremor. Noral sdtrength, tone, bulk and relexes. Toes downgoing. Coord: No FTN dystaxia Sensory: Normal. Romberg - Gait: Left leg stiff, mild circumduction due to Achilles tendon contracture. IMP: Normal exam Migraine headache- now improved RLS- much improved on Pramipexole. Arnold-Chiari Type I with stable ventriculomegaly SUGGEST: Resume Protriptyline 5 mg HS Sumatriptan 100 mg or Rizatriptan 10 mg PRN breakthrough headaches Continue Pramipexole 0.25 mg HS Stable for Discharge Neuro f/u as out patient. Thank you very much, Howie Mcclain MD
[2018-07-05 06:15] VITALS: TEMP 98.2
[2018-07-05] MEDS ORDERED: PT OWN MED DRAWER 7, Y5N ONE (06:24)
[2018-07-05] MEDS ORDERED: TACROLIMUS ANHYDROUS 5 MG CAPSULE PO SCH (07:00)
[2018-07-05 08:22] LABS: ANION GAP 5 MMOL/L (8-16); BLOOD UREA NITROGEN 27 mg/dL (7-18); CHLORIDE 116 mmol/L (98-107); CO2 21 mmol/L (21-32); CREATININE 1.8 mg/dL (0.55-1.3); GLUCOSE,RANDOM 101 mg/dL (74-106); POTASSIUM 4.3 mmol/L (3.5-5.1); SODIUM 141 mmol/L (136-145)
[2018-07-05] MEDS: MYCOPHENOLATE SODIUM 360 MG TABLET.DR PO SCH (09:12)
[2018-07-05 09:38] VITALS: BP 124/74; PULSE 78
[2018-07-05] MEDS ORDERED: predniSONE 5 MG TABLET (UD) PO SCH (10:00)
--- NOTE | 2018-07-05 11:48 | DS ---
Physical Examination Vital Signs: Vital Signs Temperature 98.2 F 07/05/18 06:14 Pulse Rate 78 07/05/18 09:36 Respiratory Rate 20 07/05/18 09:36 Blood Pressure 124/74 07/05/18 09:36 O2 Sat by Pulse Oximetry (%) 100 07/04/18 22:00 Constitutional: Yes: No Distress, Calm Cardiovascular: Yes: Regular Rate and Rhythm Respiratory: Yes: CTA Bilaterally Gastrointestinal: Yes: Normal Bowel Sounds, Soft. No: Tenderness Edema: No Labs: CBC, BMP 07/04/18 07:45 07/05/18 06:45 Discharge Summary Reason For Visit: ARNOLD CHIARI MALFORMATION TYPE I, HEADACHE Current Active Problems Chiari I malformation (Acute) Chiari syndrome (Acute) Headache (Acute) Renal insufficiency (Acute) Hospital Course: Admitted for headaches, CKD Seen by Neurology and ophthalmology CT head-- no acute changes As per Neurology-- Resume Protriptyline 5 mg HS Sumatriptan 100 mg or Rizatriptan 10 mg PRN breakthrough headaches Continue Pramipexole 0.25 mg HS Stable for Discharge Neuro f/u as out patient. stable for dc home She will need to follow up with PMD/transplant team-- check renal function-- better today - creatinine from 1.9--->1.8 Condition: Stable - Instructions Diet, Activity, Other Instructions: Resume Protriptyline 5 mg HS Sumatriptan 100 mg or Rizatriptan 10 mg PRN breakthrough headaches Continue Pramipexole 0.25 mg HS Stable for Discharge Neuro f/u as out patient. Referrals: Jaylon Thurman MD [Primary Care Provider] - Disposition: HOME - Home Medications Comprehensive Discharge Medication List: Ambulatory Orders Tacrolimus [Prograf] 5 mg PO AM 03/02/15 Mycophenolate Sodium [Myfortic] 360 mg PO BID 11/02/15 Prednisone 5 mg PO DAILY 11/02/15 Protriptyline HCl 5 mg PO HS 07/20/17 Tacrolimus Anhydrous [Prograf] 4 mg PO HS 07/04/18
== END 2018-07-05 13:34 | disposition home or self-care (01) | DRG 81 ==
LOC: JER 20:26 → JERBED 07-04 05:16 → J6S 07-04 08:16
PROVIDERS: ADMIT Internal Medicine; ATTEND Internal Medicine
DX: G93.5 Compression of brain (principal); Z94.0 Kidney transplant status; Q07.02 Arnold-Chiari syndrome with hydrocephalus; G43.909 Migraine, unspecified, not intractable, without status migrainosus; G25.81 Restless legs syndrome; N18.9 Chronic kidney disease, unspecified
CPT/HCPCS: 36415; 70450-TC; 80048; 80053; 81003; 81015; 84703; 85025; 85610; 93005; 93010; 99284-25; J0131; J7030

== ENCOUNTER 2018-09-13 20:30 | Emergency (ER) | payer BC ==
[2018-09-13 20:36] VITALS: BP 141/82; PULSE 97; TEMP 97.7; BMI 35.5
--- NOTE | 2018-09-13 20:38 | PDOC ---
Rapid Medical Evaluation Chief Complaint: Back Pain Time Seen by Provider: 09/13/18 20:33 Medical Evaluation: Allergies Allergy/AdvReac Type Severity Reaction Status Date / Time raspberry Allergy Unknown Verified 07/03/18 20:39 No Known Drug Allergies Allergy Verified 07/03/18 20:39 09/13/18 20:33 33 year old female with lower back pain x 3 days. took tylenol with no relief. + urinary frequency and flank pain PE: patient alert ox 3 + right CVAT A: right flank pain P: UA UCX labs Discharge Disposition - Diagnosis Flank pain - Referrals - Patient Instructions - Post Discharge Activity
[2018-09-13] MEDS ORDERED: ACETAMINOPHEN 1000 MG/100 ML VIAL (NON FORMULARY) IVPB ONE (21:04)
[2018-09-13 21:19] LABS: BASO % 0.3 % (0-2.0); EOS % 0.8 % (0-4.5); HEMOGLOBIN 10.1 GM/dL (10.7-15.3); LYMPH % 25.7 % (8-40); MCH 27.2 pg (25.7-33.7); MCHC 32.4 g/dl (32.0-36.0); MEAN PLT VOLUME 7.6 fl (7.5-11.1); MONO % 4.9 % (3.8-10.2); NEUT % 68.3 % (42.8-82.8); PLATELET COUNT 294 K/MM3 (134-434); RBC 3.69 M/mm3 (3.60-5.2); RDW 15.3 % (11.6-15.6)
[2018-09-13 21:24] LABS: EPI CELLS 2.3 /HPF (0-5/HPF); URINE APPEARANCE CLEAR; URINE BACTERIA 164.1 /hpf (NEGATIVE); URINE BILIRUBIN NEGATIVE (NEGATIVE); URINE CASTS 2 /lpf (0-8); URINE COLOR YELLOW; URINE GLUCOSE (UA) NEGATIVE (NEGATIVE); URINE KETONE NEGATIVE (NEGATIVE); URINE LEUK ESTERASE 1+ (NEGATIVE); URINE NITRITE NEGATIVE (NEGATIVE); URINE PROTEIN 2+ (NEGATIVE); URINE RBC 2 /hpf (0-4); URINE UROBILINOGEN 0.2 mg/dL (0.2-1.0); URINE WBC 25 /hpf (0-5)
--- NOTE | 2018-09-13 21:39 | PDOC ---
History of Present Illness <Nilsa Mccann - Last Filed: 09/13/18 22:37> - General History Source: Patient Exam Limitations: No Limitations <Alka Young - Last Filed: 09/13/18 22:45> - General Chief Complaint: Back Pain Stated Complaint: BACK PAIN Time Seen by Provider: 09/13/18 20:33 Past History <Nilsa Mccann - Last Filed: 09/13/18 22:37> - Past Medical History Anemia: No Asthma: No Cancer: No Cardiac Disorders: Yes (congenital murmur) CVA: No COPD: No CHF: No Dementia: No Diabetes: No GI Disorders: No Disorders: Yes (BILATERAL KIDNEY TRANSPLANT, 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, REJECTED, dialysi) HTN: No Hypercholesterolemia: No Liver Disease: No Seizures: No Thyroid Disease: No - Surgical History Abdominal Surgery: No Appendectomy: No Cardiac Surgery: Yes (closure for congenital murmur AT 1 YR OF AGE) Cholecystectomy: No Lung Surgery: No Neurologic Surgery: No Orthopedic Surgery: Yes (bilateral hip replacements, right knee surgery) - Reproductive History (#): 1 Para: 0 Cervical CA: No Dysfunctional Uterine Bleeding: No Ectopic : No Endometrial CA: No Polycystic Ovaries: No Therapeutic (s) & number: No Tubal Ligation: No Spontaneous : 0 - Immunization History Immunization Up to Date: Yes - Suicide/Smoking/Psychosocial Hx Smoking Status: No Smoking History: Never smoked Have you smoked in the past 12 months: No Number of Cigarettes Smoked Daily: 0 Hx Alcohol Use: No Drug/Substance Use Hx: No Substance Use Type: None Hx Substance Use Treatment: No <HectorAlka - Last Filed: 09/13/18 22:45> - Past Medical History Allergies/Adverse Reactions: Allergies Allergy/AdvReac Type Severity Reaction Status Date / Time raspberry Allergy Unknown Verified 09/13/18 20:36 No Known Drug Allergies Allergy Verified 09/13/18 20:36 Home Medications: Ambulatory Orders Tacrolimus [Prograf] 5 mg PO AM 03/02/15 Mycophenolate Sodium [Myfortic] 360 mg PO BID 11/02/15 Prednisone 5 mg PO DAILY 11/02/15 Protriptyline HCl 5 mg PO HS 07/20/17 Tacrolimus Anhydrous [Prograf] 4 mg PO HS 02/04/19 Pramipexole Dihydrochloride [Mirapex -] 0.25 mg PO HS #30 tablet 07/05/18 Sumatriptan Succinate 100 mg PO DAILY PRN #10 tablet 07/05/18 Cephalexin Monohydrate [Keflex -] 500 mg PO BID #20 capsule 09/13/18 Lidocaine 5% Patch [Lidoderm -] 1 patch TP DAILY #7 patch 09/13/18 oxyCODONE HCL [Roxicodone -] 5 mg PO Q6H PRN #8 tablet MDD 4 09/13/18 *Physical Exam - Vital Signs Last Vital Signs Temp Pulse Resp BP Pulse Ox 97.7 F 97 H 18 141/82 100 09/13/18 20:32 09/13/18 20:32 09/13/18 20:32 09/13/18 20:32 09/13/18 20:32 <Nilsa Mccann - Last Filed: 09/13/18 22:37> - Vital Signs Last Vital Signs Temp Pulse Resp BP Pulse Ox 97.7 F 97 H 18 141/82 100 09/13/18 20:32 09/13/18 20:32 09/13/18 20:32 09/13/18 20:32 09/13/18 20:32 - Physical Exam Respiratory/Chest: positive: Lungs Clear, Normal Breath Sounds. negative: Respiratory Distress Cardiovascular: positive: Regular Rhythm, Regular Rate, S1, S2. negative: Murmur Gastrointestinal/Abdominal: positive: Normal Bowel Sounds, Soft. negative: Tender, Distended, Guarding, Rebound Musculoskeletal: negative: CVA Tenderness Integumentary: positive: Normal Color Neurologic: positive: Alert, Normal Mood/Affect <Alka Young - Last Filed: 09/13/18 22:45> ED Treatment Course - LABORATORY CBC & Chemistry Diagram: 09/13/18 20:47 09/13/18 20:56 - ADDITIONAL ORDERS Additional order review: Laboratory Results 09/13/18 09/13/18 20:56 20:35 Sodium 141 Potassium 4.1 Chloride 111 H Carbon Dioxide 24 Anion Gap 7 L BUN 23 H Creatinine 1.8 H Creat Clearance w eGFR 32.02 Random Glucose 125 H Calcium 8.9 Total Bilirubin 0.1 L AST 13 L ALT 19 Alkaline Phosphatase 102 Total Protein 7.7 Albumin 3.4 Urine Color Yellow Urine Appearance Clear Urine pH 6.0 Ur Specific [place] 1.017 Urine Protein 2+ H Urine Glucose (UA) Negative Urine Ketones Negative Urine Blood Negative Urine Nitrite Negative Urine Bilirubin Negative Urine Urobilinogen 0.2 Ur Leukocyte Esterase 1+ H Urine WBC (Auto) 25 Urine RBC (Auto) 2 Urine Casts (Auto) 2 U Epithel Cells (Auto) 2.3 Urine Bacteria (Auto) 164.1 Urine HCG, Qual Negative 09/13/18 20:47 RBC 3.69 MCV 84.0 MCHC 32.4 RDW 15.3 MPV 7.6 Neutrophils % 68.3 D Lymphocytes % 25.7 D Monocytes % 4.9 Eosinophils % 0.8 Basophils % 0.3 - Medications Given in the ED: ED Medications Discontinued Medications Generic Name Dose Route Start Last Admin Trade Name Freq PRN Reason Stop Dose Admin Acetaminophen 1,000 mg 09/13/18 21:04 09/13/18 21:55 Ofirmev Injection - IVPB 09/13/18 21:05 1,000 mg ONCE ONE Administration <Nilsa Mccann - Last Filed: 09/13/18 22:37> - LABORATORY CBC & Chemistry Diagram: 09/13/18 20:47 09/13/18 20:56 - ADDITIONAL ORDERS Additional order review: Laboratory Results 09/13/18 20:35 Urine Color Yellow Urine Appearance Clear Urine pH 6.0 Ur Specific [place] 1.017 Urine Protein 2+ H Urine Glucose (UA) Negative Urine Ketones Negative Urine Blood Negative Urine Nitrite Negative Urine Bilirubin Negative Urine Urobilinogen 0.2 Ur Leukocyte Esterase 1+ H Urine WBC (Auto) 25 Urine RBC (Auto) 2 Urine Casts (Auto) 2 U Epithel Cells (Auto) 2.3 Urine Bacteria (Auto) 164.1 09/13/18 20:47 RBC 3.69 MCV 84.0 MCHC 32.4 RDW 15.3 MPV 7.6 Neutrophils % 68.3 D Lymphocytes % 25.7 D Monocytes % 4.9 Eosinophils % 0.8 Basophils % 0.3 <Alka Young - Last Filed: 09/13/18 22:45> Medical Decision Making - Medical Decision Making The patient was seen and evaluated in conjunction with midlevel provider under my direct supervision, ancillary studies were reviewed. I agree with the plan as outlined by MATTHEW Young. HPI, workup/dispo as outlined. VS reviewed, wnl. no fever, nontoxic prior notes reviewed, urine cultures with E. coli infection, reviewed sensititivities baseline Cr without acute changes, no wbc ct, labs and lytes otherwise unremarkable no pyelo sx, no abdominal sx. no n/v or systemic sx/fevers rt paravertebral lumbar tenderness noted, no neuro deficits, limited ROM 2/2 pain, msk in nature as reproducible. treat with keflex x 10 day course, compliance encouraged, hydration rx meds and analgesia regimen; no nsaids. short course opioids for pain, reviewed side effect profile strict return precautions for fever/systemic sx or worsening infection, given she is on immunosuppressants post kidney transplant pt verbalized understanding, impression and plan. 09/13/18 22:00 09/13/18 22:37 <Nilsa Mccann - Last Filed: 09/13/18 22:37> - Medical Decision Making 33 y/o F hx of B/L kidney transplant (2002, 2009), congenital murmur repair at age 1 presents with lower back pain since 2 days ago along with dysuria and increased urinary frequency since yesterday. Denies fever, sob, cp, abd pain, n/ v, unusual vaginal discharge. Is sexually active with 1 partner; denies hx of STDs. LNMP was 2 weeks ago. Consider UTI; less suspicious for pyelo or kidney stones Plan: Labs, UA, UCx 09/13/18 21:37 Labs reviewed Patient's kidney function is at her baseline from prior UA shows +UTI Prior urine cultures were reviewed (showed E.coli, sensitive to cephalosporins) Will start on Keflex Patient also notable for lower back MSK pain worse with movement - more along R paraspinal muscles - for this patient was given Lidocaine patch and oxycodone ( unable to give NSAIDs given kidney function) 09/13/18 21:59 <Alka Young - Last Filed: 09/13/18 22:45> *DC/Admit/Observation/Transfer <Nilsa Mccann - Last Filed: 09/13/18 22:37> - Discharge Dispostion Decision to Admit order: No <Alka Young - Last Filed: 09/13/18 22:45> Diagnosis at time of Disposition: UTI (lower urinary tract infection) - Discharge Dispostion Disposition: HOME Condition at time of disposition: Stable - Prescriptions Prescriptions: Cephalexin Monohydrate [Keflex -] 500 mg PO BID #20 capsule Lidocaine 5% Patch [Lidoderm -] 1 patch TP DAILY #7 patch oxyCODONE HCL [Roxicodone -] 5 mg PO Q6H PRN #8 tablet MDD 4 PRN Reason: Severe Pain - Referrals Referrals: Jaylon Thurman MD [Primary Care Provider] - 2 Days - Patient Instructions Printed Discharge Instructions: DI for Urinary Tract Infection (UTI) Additional Instructions: Thank you for choosing [facility]. It was a pleasure taking care of you. You were noted to have urine infection for which you were started on Keflex Please take as directed Encourage hydration You were also noted with musculoskeletal lower back pain. For mild to moderate pain, you may take Tylenol 650 mg every 4 hours by mouth as needed. Do not take more than 4000 mg of Tylenol in 1 day. For severe pain, you may take Oxycodone. This medication can make you constipated for which you may take over the counter Senna tablets as needed. This medication can also make you drowsy so please be cautious with driving or performing heavy physical work. Follow-up with your doctor in 2 days Return to the Emergency Department if your symptoms worsen or persist, you have fever, shortness of breath, chest pain, severe abdominal pain, vomiting, blood in urine or other concerning symptoms. - Post Discharge Activity
[2018-09-13] MEDS ORDERED: ACETAMINOPHEN INJECTION 100 ML IVPB ONE (21:47)
[2018-09-13 21:48] LABS: ALBUMIN 3.4 g/dl (3.4-5.0); ALK PHOS 102 U/L (45-117); ANION GAP 7 MMOL/L (8-16); BILIRUBIN,TOTAL 0.1 mg/dL (0.2-1); BLOOD UREA NITROGEN 23 mg/dL (7-18); CALCIUM 8.9 mg/dL (8.5-10.1); CHLORIDE 111 mmol/L (98-107); CO2 24 mmol/L (21-32); CREATININE 1.8 mg/dL (0.55-1.3); GLUCOSE,RANDOM 125 mg/dL (74-106); POTASSIUM 4.1 mmol/L (3.5-5.1); SGOT/AST 13 U/L (15-37); SGPT/ALT 19 U/L (13-61); SODIUM 141 mmol/L (136-145); TOT PROT 7.7 g/dl (6.4-8.2)
[2018-09-13 21:51] LABS: HCG,QUALITATIVE URINE Negative
[2018-09-13] MEDS ORDERED: CEPHALEXIN MONOHYDRATE 500 MG CAPSULE (UD) PO ONE (21:57)
[2018-09-13] MEDS ORDERED: LIDOCAINE 5% TOPICAL PATCH TP ONE (22:12)
[2018-09-13] MEDS ORDERED: CEPHALEXIN MONOHYDRATE 500 MG CAPSULE (UD) ONE (22:20)
[2018-09-13] MEDS ORDERED: LIDOCAINE 5% TOPICAL PATCH ONE (22:21)
[2018-09-13] MEDS ORDERED: oxyCODONE HCL 5 MG TABLET PO ONE (22:37)
[2018-09-13] MEDS ORDERED: CYCLOBENZAPRINE HCL 10 MG TABLET (FP) PO ONE (22:37)
[2018-09-13] MEDS ORDERED: oxyCODONE HCL 5 MG TABLET ONE (22:52)
[2018-09-13] MEDS ORDERED: CYCLOBENZAPRINE HCL 10 MG TABLET (FP) ONE (22:52)
== END 2018-09-13 23:12 | disposition home or self-care (01) ==
LOC: JER 20:30
PROC: 3E033NZ Introduction of Analgesics, Hypnotics, Sedatives into Peripheral Vein, Percutaneous Approach (ICD-10-PCS; principal; 2018-09-13)
DX: N39.0 Urinary tract infection, site not specified (principal); M54.5 Low back pain; M79.18 Myalgia, other site; Z94.0 Kidney transplant status; T86.11 Kidney transplant rejection
CPT/HCPCS: 36415; 80053; 81003; 84703; 85025; 87086; 99283-25; J0131

== ENCOUNTER 2018-09-30 18:10 | Emergency (ER) | payer BC ==
--- NOTE | 2018-09-30 18:12 | PDOC ---
Rapid Medical Evaluation Time Seen by Provider: 09/30/18 18:11 Medical Evaluation: Allergies Allergy/AdvReac Type Severity Reaction Status Date / Time raspberry Allergy Unknown Verified 09/13/18 20:36 No Known Drug Allergies Allergy Verified 09/13/18 20:36 09/30/18 18:11 HPI: L hand and wrist pain x 1 day no trauma EXAM: No gross deficits ORDERS: Nothing Discharge Disposition - Diagnosis Hand pain, left - Referrals - Patient Instructions - Post Discharge Activity
[2018-09-30 18:16] VITALS: BP 137/86; PULSE 76; TEMP 98; BMI 35.9
--- NOTE | 2018-09-30 19:49 | PDOC ---
History of Present Illness - General Chief Complaint: Pain Stated Complaint: LT ARM/HAND PAIN Time Seen by Provider: 09/30/18 18:11 History Source: Patient Exam Limitations: No Limitations Past History - Travel Traveled outside of the country in the last 30 days: No Close contact w/someone who was outside of country & ill: No - Past Medical History Allergies/Adverse Reactions: Allergies Allergy/AdvReac Type Severity Reaction Status Date / Time raspberry Allergy Unknown Verified 09/30/18 18:16 No Known Drug Allergies Allergy Verified 09/30/18 18:16 Home Medications: Ambulatory Orders Tacrolimus [Prograf] 5 mg PO AM 03/02/15 Mycophenolate Sodium [Myfortic] 360 mg PO BID 11/02/15 Prednisone 5 mg PO DAILY 11/02/15 Protriptyline HCl 5 mg PO HS 07/20/17 Tacrolimus Anhydrous [Prograf] 4 mg PO HS 07/04/18 Pramipexole Dihydrochloride [Mirapex -] 0.25 mg PO HS #30 tablet 07/05/18 Sumatriptan Succinate 100 mg PO DAILY PRN #10 tablet 07/05/18 Cephalexin Monohydrate [Keflex -] 500 mg PO BID #20 capsule 09/13/18 Lidocaine 5% Patch [Lidoderm -] 1 patch TP DAILY #7 patch 09/13/18 oxyCODONE HCL [Roxicodone -] 5 mg PO Q6H PRN #8 tablet MDD 4 09/13/18 Oxycodone HCl/Acetaminophen [Percocet 5-325 mg Tablet] 1 tab PO Q4H PRN #20 tablet MDD 6 09/30/18 Anemia: No Asthma: No Cancer: No Cardiac Disorders: Yes (congenital murmur) CVA: No COPD: No CHF: No Dementia: No Diabetes: No GI Disorders: No Disorders: Yes (BILATERAL KIDNEY TRANSPLANT, 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, REJECTED, dialysi) HTN: No Hypercholesterolemia: No Liver Disease: No Seizures: No Thyroid Disease: No - Surgical History Abdominal Surgery: No Appendectomy: No Cardiac Surgery: Yes (closure for congenital murmur AT 1 YR OF AGE) Cholecystectomy: No Lung Surgery: No Neurologic Surgery: No Orthopedic Surgery: Yes (bilateral hip replacements, right knee surgery) - Reproductive History (#): 1 Para: 0 Cervical CA: No Dysfunctional Uterine Bleeding: No Ectopic : No Endometrial CA: No Polycystic Ovaries: No Therapeutic (s) & number: No Tubal Ligation: No Spontaneous : 0 - Immunization History Immunization Up to Date: Yes - Suicide/Smoking/Psychosocial Hx Smoking Status: No Smoking History: Never smoked Have you smoked in the past 12 months: No Number of Cigarettes Smoked Daily: 0 Information on smoking cessation initiated: No Hx Alcohol Use: No Drug/Substance Use Hx: No Substance Use Type: None Hx Substance Use Treatment: No Review of Systems - Review of Systems Able to Perform ROS?: Yes Comments:: 09/30/18 20:01 CONSTITUTIONAL: Absent: fever, chills, diaphoresis, generalized weakness, malaise, loss of appetite GENITOURINARY: Absent: dysuria, frequency, urgency, hesitancy, hematuria, flank pain, genital pain MUSCULOSKELETAL: Present: L wrist pain and swelling Absent: myalgia, arthralgia, joint swelling SKIN: Absent: rash, itching, pallor NEUROLOGIC: Absent: headache, focal weakness or paresthesias, dizziness, unsteady gait, seizure, mental status changes, bladder or bowel incontinence PSYCHIATRIC: Absent: anxiety, depression, suicidal or homicidal ideation, hallucinations. Is the patient limited Korean proficient: No *Physical Exam - Vital Signs Last Vital Signs Temp Pulse Resp BP Pulse Ox 98.0 F 76 16 137/86 100 09/30/18 18:13 09/30/18 18:13 09/30/18 18:13 09/30/18 18:13 09/30/18 18:13 - Physical Exam Comments: 09/30/18 20:05 GENERAL: Well developed, well nourished. Awake and alert. No acute distress. NECK: Supple. Full ROM. No JVD. Carotid pulses 2+ and symmetric, without bruits. No thyromegaly. No lymphadenopathy. MUSCULOSKELETAL L wrist with decreased ROM and swelling. Strength decreased in the L arm d/t pain 3/5. Neurovascularly intact. Pain with Tinels test. Normal range of motion at all other joints. No bony deformities or tenderness. No CVA tenderness. EXTREMITIES: Closed AV fistula on the L arm. No cyanosis. No clubbing. No edema. No calf tenderness. SKIN: Warm and dry. Normal capillary refill. No rashes. No jaundice. NEUROLOGICAL: Alert, awake, appropriate. Cranial nerves 2-12 intact. No deficits to light touch and temperature in face, upper extremities and lower extremities. No motor deficits in the in face, upper extremities and lower extremities. Normoreflexic in the upper and lower extremities. Normal speech. Toes are down- going bilaterally. Gait is normal without ataxia. PSYCHIATRIC: Cooperative. Good eye contact. Appropriate mood and affect. Medical Decision Making - Medical Decision Making 09/30/18 20:09 The patient is a 33-year-old female with past medical history of bilateral kidney transplant, (2002, 2009), old AV fistula in the left arm, who presents to the ER today for left wrist pain. She states that she has had the pain over the last 3 days and then his gotten increasingly worse. She also notes that the wrist is incredibly swollen and painful. She states that it hurts to move it. Denies trauma, falling. Denies fevers, chills, recent illness, redness over the site. A/P: Wrist swelling Tylenol, oxycodone for pain, and x-ray ordered at this time. No NSAIDS d/t kidney hx Swelling over the left lateral wrist extending into the left forearm. Positive Tinel's test Soft compartments, no warmth or rash over the skin. Suspect carpel tunnel. Will give hand follow up *DC/Admit/Observation/Transfer Diagnosis at time of Disposition: Hand pain, left - Discharge Dispostion Disposition: HOME Condition at time of disposition: Stable - Prescriptions Prescriptions: Oxycodone HCl/Acetaminophen [Percocet 5-325 mg Tablet] 1 tab PO Q4H PRN #20 tablet MDD 6 PRN Reason: Pain - Referrals Referrals: Jaylon Thurman MD [Primary Care Provider] - Jalil Beyer MD [Staff Physician] - - Patient Instructions Additional Instructions: Follow up with Dr. Beyer. You can take the Percocet one tablet every 4-6 hours as needed, elevate your wrist and wear the splint. Return to the ER if fever or uncontrolled pain - Post Discharge Activity
[2018-09-30] MEDS ORDERED: ACETAMINOPHEN 500 MG TABLET (FP) PO ONE (19:50)
[2018-09-30] MEDS ORDERED: ACETAMINOPHEN 500 MG TABLET (FP) ONE (20:04)
[2018-09-30] MEDS ORDERED: oxyCODONE HCL 5 MG TABLET PO ONE (20:17)
[2018-09-30] MEDS ORDERED: oxyCODONE HCL 5 MG TABLET ONE (20:57)
--- NOTE | 2018-09-30 21:04 | PDOC ---
*Physical Exam - Vital Signs Last Vital Signs Temp Pulse Resp BP Pulse Ox 98.0 F 76 16 137/86 100 09/30/18 18:13 09/30/18 18:13 09/30/18 18:13 09/30/18 18:13 09/30/18 18:13 - Physical Exam Comments: 09/30/18 20:57 33-year-old female with multiple medical problems, on immunosuppressants with left wrist pain that was evaluated by MATTHEW Wylie and Dr. Mccann Since signed out to me for x-ray and discharge home with oxycodone and hand follow-up. Patient has her own splint. 09/30/18 22:45 Neurologic: positive: Fully Oriented, Alert, Normal Mood/Affect ED Treatment Course - Medications Given in the ED: ED Medications Discontinued Medications Generic Name Dose Route Start Last Admin Trade Name Freq PRN Reason Stop Dose Admin Acetaminophen 1,000 mg 09/30/18 19:50 09/30/18 20:07 Tylenol - PO 09/30/18 19:51 1,000 mg ONCE ONE Administration Progress Note - Progress Note Progress Note: X-ray shows no acute fractures or issue requiring immediate attention in the emergency department. *DC/Admit/Observation/Transfer Diagnosis at time of Disposition: Hand pain, left - Discharge Dispostion Disposition: HOME Condition at time of disposition: Stable Decision to Admit order: No - Prescriptions Prescriptions: Oxycodone HCl/Acetaminophen [Percocet 5-325 mg Tablet] 1 tab PO Q4H PRN #20 tablet MDD 6 PRN Reason: Pain - Referrals Referrals: Jalil Beyer MD [Staff Physician] - Jaylon Thurman MD [Primary Care Provider] - - Patient Instructions Additional Instructions: Follow up with Dr. Beyer. You can take the Percocet one tablet every 4-6 hours as needed, elevate your wrist and wear the splint. Return to the ER if fever or uncontrolled pain - Post Discharge Activity
== END 2018-09-30 21:09 | disposition home or self-care (01) ==
LOC: JERFT 18:10
DX: M79.644 Pain in right finger(s) (principal); I77.0 Arteriovenous fistula, acquired; Z94.0 Kidney transplant status
CPT/HCPCS: 73110-TC-LT-FY; 73130-TC-LT-FY; 99281-25

== ENCOUNTER 2019-11-20 21:42 | Inpatient (IN) | payer BC, OTHER ==
[2019-11-20 21:51] VITALS: BMI 34.4
[2019-11-20 22:42] LABS: BASO % 0.5 % (0-2.0); EOS % 3.5 % (0-4.5); HEMATOCRIT 28.8 % (32.4-45.2); HEMOGLOBIN 9.2 GM/dL (10.7-15.3); LYMPH % 26.5 % (8-40); MCH 25.7 pg (25.7-33.7); MEAN CELL VOLUME 80.3 fl (80-96); MEAN PLT VOLUME 6.9 fl (7.5-11.1); MONO % 4.5 % (3.8-10.2); PLATELET COUNT 362 K/MM3 (134-434); RBC 3.59 M/mm3 (3.60-5.2); RDW 16.6 % (11.6-15.6); WHITE BLOOD COUNT 7.3 K/mm3 (4.0-10.0)
[2019-11-20] MEDS ORDERED: SODIUM CHLORIDE 250 ML IV STA (22:42)
[2019-11-20 23:13] LABS: ALBUMIN 3.4 g/dl (3.4-5.0); ALK PHOS 115 U/L (45-117); ANION GAP 10 MMOL/L (8-16); BILIRUBIN,TOTAL 0.2 mg/dL (0.2-1); BLOOD UREA NITROGEN 26.2 mg/dL (7-18); CALCIUM 8.8 mg/dL (8.5-10.1); CHLORIDE 112 mmol/L (98-107); CO2 20 mmol/L (21-32); CREATININE 2.5 mg/dL (0.55-1.3); GLUCOSE,RANDOM 112 mg/dL (74-106); MAGNESIUM 2.4 mg/dL (1.8-2.4); POTASSIUM 3.4 mmol/L (3.5-5.1); SGOT/AST 10 U/L (15-37); SGPT/ALT 19 U/L (13-61); SODIUM 142 mmol/L (136-145); TOT PROT 7.3 g/dl (6.4-8.2)
[2019-11-20 23:17] LABS: INR 0.96 (0.83-1.09); PROTHROMBIN TIME (PATIENT) 11.3 SEC (9.7-13.0)
[2019-11-20 23:20] LABS: ACTIVATED PTT 28.9 SECONDS (25.2-36.5)
[2019-11-20] MEDS ORDERED: FAMOTIDINE 20 MG/50 ML IVPB 20 MG/50 ML MG IVPB ONE (23:34)
[2019-11-20] MEDS ORDERED: HEPARIN NA (PORCINE) 5,000 UNITS/ML 1ML VIAL IVPUSH PRN (23:37)
[2019-11-20] MEDS ORDERED: HEPARIN NA (PORCINE) 5,000 UNITS/ML 1ML VIAL IVPUSH ONE (23:39)
[2019-11-20] MEDS ORDERED: HEPARIN - 25,000 UNIT in SODIUM CHLORIDE 495 ML IV SCH (23:45)
[2019-11-21] MEDS ORDERED: HEPARIN INFUSION - 25,000 UNITS/500 ML INFUS.BAG IVPB ONE (00:17)
[2019-11-21] MEDS ORDERED: HEPARIN NA (PORCINE) 5,000 UNITS/ML 1ML VIAL ONE (00:17)
[2019-11-21] MEDS ORDERED: FAMOTIDINE 20 MG/50 ML IVPB 20 MG/50 ML MG IVPB ONE (00:32)
[2019-11-21 01:19] LABS: EPI CELLS 29 /uL (0-25.1); HYALINE CASTS 1 /uL (0-3.1); PH,URINE 6.5 (5.0-8.0); URINE APPEARANCE CLEAR; URINE BACTERIA 530 /uL (0-1359); URINE BILIRUBIN NEGATIVE (NEGATIVE); URINE COLOR YELLOW; URINE GLUCOSE (UA) NEGATIVE (NEGATIVE); URINE KETONE NEGATIVE (NEGATIVE); URINE LEUK ESTERASE TRACE (NEGATIVE); URINE NITRITE NEGATIVE (NEGATIVE); URINE PROTEIN 2+ (NEGATIVE); URINE RBC 8 /uL (0-23.9); URINE UROBILINOGEN 0.2 mg/dL (0.2-1.0); URINE WBC 54 /uL (0-25.8)
[2019-11-21 05:41] LABS: HEMOGLOBIN 9.4 GM/dL (10.7-15.3); MCH 25.5 pg (25.7-33.7); MCHC 31.4 g/dl (32.0-36.0); MEAN CELL VOLUME 81.3 fl (80-96); PLATELET COUNT 324 K/MM3 (134-434); RBC 3.69 M/mm3 (3.60-5.2); RDW 16.3 % (11.6-15.6)
[2019-11-21 06:25] LABS: BLOOD UREA NITROGEN 24.4 mg/dL (7-18); CALCIUM 8.4 mg/dL (8.5-10.1); CREATININE 2.4 mg/dL (0.55-1.3); MAGNESIUM 2.4 mg/dL (1.8-2.4); PHOSPHOROUS 4.1 mg/dL (2.5-4.9); POTASSIUM 3.9 mmol/L (3.5-5.1)
[2019-11-21] MEDS ORDERED: cefTRIAXone SODIUM 1 GM VIAL ONE (09:55)
[2019-11-21] MEDS ORDERED: DEXTROSE 5%-WATER - 50 ML IVPB ONE (09:55)
[2019-11-21] MEDS: CEFTRIAXONE 1 GM in DEXTROSE 5%-WATER - 50 ML IVPB SCH (09:59)
[2019-11-21] MEDS: PANTOPRAZOLE 40 MG TABLET PO SCH (09:59)
[2019-11-21] MEDS: predniSONE 5 MG TABLET (UD) PO SCH (09:59)
[2019-11-21] MEDS ORDERED: TACROLIMUS ANHYDROUS 1 MG CAPSULE PO SCH (10:00)
[2019-11-21] MEDS ORDERED: MYCOPHENOLATE SODIUM 360 MG TABLET.DR PO SCH ×3 (10:00→22:00)
[2019-11-21 10:24] LABS: INR 1.04 (0.83-1.09); PROTHROMBIN TIME (PATIENT) 12.3 SEC (9.7-13.0)
[2019-11-21 12:10] LABS: ACTIVATED PTT 58.1 SECONDS (25.2-36.5)
[2019-11-21] MEDS ORDERED: MYCOPHENOLATE SODIUM 360 MG TABLET.DR PO ONE (14:00)
[2019-11-21] MEDS ORDERED: SODIUM BICARBONATE 650 MG TABLET PO ONE (15:05)
[2019-11-21] MEDS ORDERED: TACROLIMUS ANHYDROUS 1 MG CAPSULE PO ONE (16:15)
[2019-11-21] MEDS: SODIUM CHLORIDE 0.45% 1,000 ML IV SCH (16:18)
[2019-11-21] MEDS: MYCOPHENOLATE SODIUM 360 MG TABLET.DR PO SCH (21:54)
[2019-11-21] MEDS: TACROLIMUS ANHYDROUS 5 MG CAPSULE PO SCH (21:55)
[2019-11-21 23:00] LABS: EPI CELLS 8 /uL (0-25.1); HYALINE CASTS 0 /uL (0-3.1); URINE APPEARANCE CLEAR; URINE BACTERIA 36 /uL (0-1359); URINE BILIRUBIN NEGATIVE (NEGATIVE); URINE COLOR YELLOW; URINE GLUCOSE (UA) TRACE (NEGATIVE); URINE KETONE NEGATIVE (NEGATIVE); URINE LEUK ESTERASE NEGATIVE (NEGATIVE); URINE NITRITE NEGATIVE (NEGATIVE); URINE PROTEIN 2+ (NEGATIVE); URINE RBC 6 /uL (0-23.9); URINE UROBILINOGEN 0.2 mg/dL (0.2-1.0); URINE WBC 7 /uL (0-25.8)
[2019-11-22] MEDS: SODIUM CHLORIDE 0.45% 1,000 ML IV SCH (05:58)
[2019-11-22 08:04] LABS: BASO % 0.4 % (0-2.0); EOS % 2.9 % (0-4.5); HEMATOCRIT 27.7 % (32.4-45.2); HEMOGLOBIN 8.8 GM/dL (10.7-15.3); LYMPH % 31.9 % (8-40); MCH 25.5 pg (25.7-33.7); MCHC 31.9 g/dl (32.0-36.0); MEAN PLT VOLUME 7.1 fl (7.5-11.1); MONO % 5.7 % (3.8-10.2); NEUT % 59.1 % (42.8-82.8); PLATELET COUNT 335 K/MM3 (134-434); RBC 3.46 M/mm3 (3.60-5.2); RDW 16.2 % (11.6-15.6); WHITE BLOOD COUNT 5.8 K/mm3 (4.0-10.0)
[2019-11-22 08:15] LABS: BLOOD UREA NITROGEN 22.5 mg/dL (7-18); CALCIUM 8.5 mg/dL (8.5-10.1); CREATININE 2.2 mg/dL (0.55-1.3); POTASSIUM 3.7 mmol/L (3.5-5.1)
[2019-11-22] MEDS ORDERED: PT OWN MED DRAWER 7, Y5N ONE ×3 (08:45→20:39)
[2019-11-22] MEDS ORDERED: DEXTROSE 5%-WATER - 50 ML IVPB ONE (08:46)
[2019-11-22] MEDS ORDERED: cefTRIAXone SODIUM 1 GM VIAL ONE (08:46)
[2019-11-22] MEDS: predniSONE 5 MG TABLET (UD) PO SCH (09:13)
[2019-11-22] MEDS: PANTOPRAZOLE 40 MG TABLET PO SCH (09:13)
[2019-11-22] MEDS: CEFTRIAXONE 1 GM in DEXTROSE 5%-WATER - 50 ML IVPB SCH (09:13)
[2019-11-22] MEDS: MYCOPHENOLATE SODIUM 360 MG TABLET.DR PO SCH ×2 (09:14→21:22)
[2019-11-22] MEDS: TACROLIMUS ANHYDROUS 5 MG CAPSULE PO SCH ×2 (09:16→21:22)
[2019-11-22] MEDS ORDERED: MYCOPHENOLATE SODIUM 360 MG TABLET.DR PO SCH (10:00)
[2019-11-23 06:53] LABS: HEMATOCRIT 29.7 % (32.4-45.2); HEMOGLOBIN 9.3 GM/dL (10.7-15.3); MCH 25.3 pg (25.7-33.7); MCHC 31.3 g/dl (32.0-36.0); MEAN PLT VOLUME 7.3 fl (7.5-11.1); PLATELET COUNT 330 K/MM3 (134-434); RBC 3.66 M/mm3 (3.60-5.2); RDW 16.4 % (11.6-15.6); WHITE BLOOD COUNT 6.6 K/mm3 (4.0-10.0)
[2019-11-23 07:49] LABS: BLOOD UREA NITROGEN 23.1 mg/dL (7-18); CALCIUM 9.1 mg/dL (8.5-10.1); CREATININE 2.3 mg/dL (0.55-1.3)
[2019-11-23] MEDS ORDERED: cefTRIAXone SODIUM 1 GM VIAL ONE (08:40)
[2019-11-23] MEDS ORDERED: DEXTROSE 5%-WATER - 50 ML IVPB ONE (08:40)
[2019-11-23] MEDS ORDERED: PT OWN MED DRAWER 7, Y5N ONE ×2 (08:40→09:16)
[2019-11-23] MEDS: PANTOPRAZOLE 40 MG TABLET PO SCH (09:17)
[2019-11-23] MEDS: predniSONE 5 MG TABLET (UD) PO SCH (09:17)
[2019-11-23] MEDS: MYCOPHENOLATE SODIUM 360 MG TABLET.DR PO SCH ×2 (09:18→22:55)
[2019-11-23] MEDS: TACROLIMUS ANHYDROUS 5 MG CAPSULE PO SCH ×2 (09:18→22:56)
[2019-11-23] MEDS: CEFTRIAXONE 1 GM in DEXTROSE 5%-WATER - 50 ML IVPB SCH (09:18)
[2019-11-23] MEDS: SODIUM CHLORIDE 0.45% 1,000 ML IV SCH (19:06)
[2019-11-24 07:11] LABS: BASO % 0.4 % (0-2.0); EOS % 1.8 % (0-4.5); HEMATOCRIT 28.1 % (32.4-45.2); HEMOGLOBIN 8.9 GM/dL (10.7-15.3); LYMPH % 31.6 % (8-40); MCH 25.4 pg (25.7-33.7); MCHC 31.6 g/dl (32.0-36.0); MEAN CELL VOLUME 80.7 fl (80-96); MEAN PLT VOLUME 7.3 fl (7.5-11.1); MONO % 5.1 % (3.8-10.2); NEUT % 61.1 % (42.8-82.8); PLATELET COUNT 307 K/MM3 (134-434); RBC 3.49 M/mm3 (3.60-5.2); RDW 16.5 % (11.6-15.6); WHITE BLOOD COUNT 6.9 K/mm3 (4.0-10.0)
[2019-11-24 07:43] LABS: ALBUMIN 2.9 g/dl (3.4-5.0); BILIRUBIN,TOTAL 0.3 mg/dL (0.2-1); BLOOD UREA NITROGEN 24.4 mg/dL (7-18); CALCIUM 8.1 mg/dL (8.5-10.1); POTASSIUM 3.4 mmol/L (3.5-5.1); TOT PROT 6.4 g/dl (6.4-8.2)
[2019-11-24] MEDS ORDERED: DEXTROSE 5%-WATER - 50 ML IVPB ONE (08:27)
[2019-11-24] MEDS ORDERED: cefTRIAXone SODIUM 1 GM VIAL ONE (08:27)
[2019-11-24] MEDS ORDERED: POTASSIUM CHLORIDE TABS 20 MEQ TABLET.ER (FP) PO ONE (09:00)
[2019-11-24] MEDS: CEFTRIAXONE 1 GM in DEXTROSE 5%-WATER - 50 ML IVPB SCH (09:25)
[2019-11-24] MEDS: predniSONE 5 MG TABLET (UD) PO SCH (09:26)
[2019-11-24] MEDS: PANTOPRAZOLE 40 MG TABLET PO SCH (09:26)
[2019-11-24] MEDS: MYCOPHENOLATE SODIUM 360 MG TABLET.DR PO SCH (09:26)
[2019-11-24 09:50] VITALS: BP 117/73; PULSE 94; TEMP 97.7
[2019-11-24] MEDS: TACROLIMUS ANHYDROUS 5 MG CAPSULE PO SCH (11:18)
[2019-11-24] MEDS ORDERED: SODIUM BICARBONATE 650 MG TABLET PO ONE (12:22)
== END 2019-11-24 12:47 | disposition home or self-care (01) | DRG 699 ==
LOC: JER 21:42 → JERBED 11-21 00:57 → J4W 11-21 10:07
PROVIDERS: ADMIT Internal Medicine; ATTEND Internal Medicine
DX: T86.19 Other complication of kidney transplant (principal); Q89.8 Other specified congenital malformations; N17.9 Acute kidney failure, unspecified; N39.0 Urinary tract infection, site not specified; R07.89 Other chest pain; Z86.718 Personal history of other venous thrombosis and embolism; N18.9 Chronic kidney disease, unspecified; D64.9 Anemia, unspecified; E66.9 Obesity, unspecified; Z68.34 Body mass index [BMI] 34.0-34.9, adult; R13.10 Dysphagia, unspecified; K21.9 Gastro-esophageal reflux disease without esophagitis; F41.8 Other specified anxiety disorders; K22.4 Dyskinesia of esophagus; Z86.711 Personal history of pulmonary embolism; Z11.59 Encounter for screening for other viral diseases; Y83.0 Surgical operation with transplant of whole organ as the cause of abnormal reaction of the patient, or of later complication, without mention of misadventure at the time of the procedure
CPT/HCPCS: 36415; 71045-TC-FY; 76776-TC; 78452-TC; 78582-TC; 80048; 80053; 80197; 81003; 82436; 82550; 82565; 82962; 83735; 84100; 84133; 84300; 84484; 84703; 85025; 85027; 85610; 85730; 87086; 87205; 93005; 93010; 93017; 93306-TC; 93970-TC; 99285-25; A9502; A9539; A9540; J1644; U0003

== ENCOUNTER 2022-12-14 19:27 | Emergency (ER) | payer BC, OTHER ==
[2022-12-14 19:50] VITALS: BP 167/92; PULSE 102; RESP 18; TEMP 97.7; BMI 33.4
== END 2022-12-14 22:59 | disposition home or self-care (01) ==
LOC: JER 19:27
DX: M25.551 Pain in right hip (principal); M25.552 Pain in left hip; W01.0XXA Fall on same level from slipping, tripping and stumbling without subsequent striking against object, initial encounter
CPT/HCPCS: 73521-TC-FY; 73562-TC-LT-FY; 73562-TC-RT-FY; 99284-25

== ENCOUNTER 2023-04-04 00:21 | Inpatient (IN) | payer OTHER, BC ==
[2023-04-04 00:28] VITALS: BMI 31.3
[2023-04-04] MEDS ORDERED: guaiFENesin 200 MG/10 ML 10 ML UNIT-DOSE CUPS PO ONE (01:02)
[2023-04-04] MEDS ORDERED: guaiFENesin/CODEINE 10 ML UNIT-DOSE CUPS ONE (01:11)
[2023-04-04] MEDS ORDERED: guaiFENesin 200 MG/10 ML 10 ML UNIT-DOSE CUPS ONE (01:15)
[2023-04-04 01:40] LABS: BASO % 0.4 % (0-2.0); EOS % 1.1 % (0-4.5); HEMATOCRIT 27.4 % (32.4-45.2); HEMOGLOBIN 8.8 GM/dL (10.7-15.3); LYMPH % 13.7 % (8-40); MCH 29.7 pg (25.7-33.7); MCHC 32.1 g/dl (32.0-36.0); MEAN CELL VOLUME 92.6 fl (80-96); MEAN PLT VOLUME 6.8 fl (7.5-11.1); MONO % 4.5 % (3.8-10.2); NEUT % 80.3 % (42.8-82.8); PLATELET COUNT 245 10^3/uL (134-434); RBC 2.97 M/mm3 (3.60-5.2); RDW 17.3 % (11.6-15.6); WHITE BLOOD COUNT 5.3 K/mm3 (4.0-10.0)
[2023-04-04 02:15] LABS: CHLORIDE 106 mmol/L (98-107); SODIUM 140 mmol/L (136-145)
[2023-04-04 02:17] LABS: CALCIUM 7.9 mg/dL (8.5-10.1)
[2023-04-04 02:18] LABS: ANION GAP 8 mmol/L (4-13); BLOOD UREA NITROGEN 27.3 mg/dL (7-18); CO2 26 mmol/L (21-32); GLUCOSE,RANDOM 95 mg/dL (74-106)
[2023-04-04 02:20] LABS: SGPT/ALT 10 U/L (13-61)
[2023-04-04 02:21] LABS: CREATININE 4.3 mg/dL (0.55-1.3); SGOT/AST 13 U/L (15-37)
[2023-04-04 02:22] LABS: BILIRUBIN,TOTAL 0.3 mg/dL (0.2-1); TOT PROT 6.1 g/dl (6.4-8.2)
[2023-04-04 02:23] LABS: ALK PHOS 146 U/L (45-117)
[2023-04-04 02:35] LABS: N-TERMINAL BNP > 35000.0 pg/ml (5-125)
[2023-04-04] MEDS ORDERED: FUROSEMIDE 40 MG/4 ML INJECTABLE VIAL IVPUSH ONE (02:40)
[2023-04-04] MEDS ORDERED: TORSEMIDE 20 MG TABLET (FP) PO ONE (02:42)
[2023-04-04] MEDS ORDERED: FUROSEMIDE 40 MG/4 ML INJECTABLE VIAL ONE ×2 (02:42→14:34)
[2023-04-04] MEDS ORDERED: ACETAMINOPHEN 1000 MG/100 ML BAG IVPB ONE (02:56)
[2023-04-04] MEDS ORDERED: ACETAMINOPHEN INJECTION 100 ML IVPB ONE (03:23)
[2023-04-04] MEDS ORDERED: SEVELAMER CARBONATE 800 MG TAB (FP) ONE (06:21)
[2023-04-04] MEDS ORDERED: HEPARIN NA (PORCINE) 5,000 UNITS/ML 1ML VIAL ONE ×3 (06:21→20:56)
[2023-04-04] MEDS: SEVELAMER CARBONATE 800 MG TAB (FP) PO SCH ×3 (06:29→21:04)
[2023-04-04] MEDS: HEPARIN NA (PORCINE) 5,000 UNITS/ML 1ML VIAL SQ SCH ×3 (06:29→21:04)
[2023-04-04 06:43] LABS: HEMATOCRIT 26.2 % (32.4-45.2); HEMOGLOBIN 8.5 GM/dL (10.7-15.3); MCH 30.5 pg (25.7-33.7); MCHC 32.5 g/dl (32.0-36.0); MEAN CELL VOLUME 94.1 fl (80-96); MEAN PLT VOLUME 6.9 fl (7.5-11.1); PLATELET COUNT 223 10^3/uL (134-434); RBC 2.79 M/mm3 (3.60-5.2); RDW 17.3 % (11.6-15.6); WHITE BLOOD COUNT 5.6 K/mm3 (4.0-10.0)
[2023-04-04 06:56] LABS: POTASSIUM 3.7 mmol/L (3.5-5.1)
[2023-04-04 07:02] LABS: ALBUMIN 3.1 g/dl (3.4-5.0); CALCIUM 8.2 mg/dL (8.5-10.1); MAGNESIUM 2.3 mg/dL (1.8-2.4)
[2023-04-04 07:05] LABS: CREATININE 4.6 mg/dL (0.55-1.3); PHOSPHOROUS 3.8 mg/dL (2.5-4.9)
[2023-04-04 07:07] LABS: BILIRUBIN,TOTAL 0.4 mg/dL (0.2-1); CHOLESTEROL 106 mg/dL (50-200); TOT PROT 6.3 g/dl (6.4-8.2)
[2023-04-04 07:08] LABS: LDL CHOLESTEROL (ONLY SJRH) 46 mg/dL (5-100)
[2023-04-04 07:10] LABS: HDL CHOLESTEROL 36 mg/dL (40-60)
[2023-04-04] MEDS: TACROLIMUS ANHYDROUS 1 MG CAPSULE PO SCH (07:25)
[2023-04-04] MEDS ORDERED: ACETAMINOPHEN 325 MG TABLET (FP) ONE (08:30)
[2023-04-04] MEDS: ACETAMINOPHEN 325 MG TABLET (FP) PO PRN (08:34)
[2023-04-04] MEDS ORDERED: FAMOTIDINE 20 MG TABLET ONE (08:58)
[2023-04-04] MEDS: FAMOTIDINE 20 MG TABLET PO SCH (09:04)
[2023-04-04] MEDS: amLODIPine BESYLATE 5 MG TABLET (FP) PO SCH (09:04)
[2023-04-04] MEDS: predniSONE 5 MG TABLET (UD) PO SCH (09:04)
[2023-04-04] MEDS ORDERED: TORSEMIDE 20 MG TABLET (FP) PO SCH ×2 (10:00)
[2023-04-04] MEDS: BENZOCAINE/MENTH/CETYLPYRD CL 1 EACH LOZENGE MM PRN (12:08)
[2023-04-04] MEDS ORDERED: SODIUM CHLORIDE 250 ML IV PRN (13:56)
[2023-04-04] MEDS: FUROSEMIDE 40 MG/4 ML INJECTABLE VIAL IVPUSH SCH (14:51)
[2023-04-04] MEDS ORDERED: ACETAMINOPHEN/CAFFEINE/BUTALBITAL 1 TAB PO PRN (17:33)
[2023-04-04] MEDS ORDERED: ACETAMINOPHEN/CAFFEINE/BUTALBITAL 1 TAB ONE (17:41)
[2023-04-04] MEDS ORDERED: MELATONIN 5 MG TABLETS ONE (20:56)
[2023-04-04] MEDS ORDERED: TOPIRAMATE 25 MG TABLET ONE (20:56)
[2023-04-04] MEDS: MELATONIN 5 MG TABLETS PO SCH (21:04)
[2023-04-04] MEDS: TOPIRAMATE 25 MG TABLET PO SCH (21:04)
[2023-04-05] MEDS ORDERED: guaiFENesin/CODEINE 5 ML UNIT-DOSE CUPS PO ONE (01:20)
[2023-04-05] MEDS ORDERED: ACETAMINOPHEN 325 MG TABLET (FP) ONE (01:20)
[2023-04-05] MEDS ORDERED: ZOLPIDEM TARTRATE 5 MG TABLET PO ONE (01:20)
[2023-04-05] MEDS: ACETAMINOPHEN 325 MG TABLET (FP) PO PRN (01:22)
[2023-04-05] MEDS: guaiFENesin/CODEINE 5 ML UNIT-DOSE CUPS PO PRN ×2 (01:28→18:35)
[2023-04-05] MEDS ORDERED: FUROSEMIDE 40 MG/4 ML INJECTABLE VIAL ONE (05:46)
[2023-04-05] MEDS ORDERED: HEPARIN NA (PORCINE) 5,000 UNITS/ML 1ML VIAL ONE (05:46)
[2023-04-05] MEDS: FUROSEMIDE 40 MG/4 ML INJECTABLE VIAL IVPUSH SCH (05:59)
[2023-04-05] MEDS: HEPARIN NA (PORCINE) 5,000 UNITS/ML 1ML VIAL SQ SCH ×2 (05:59→21:52)
[2023-04-05] MEDS: SEVELAMER CARBONATE 800 MG TAB (FP) PO SCH ×2 (06:00→21:52)
[2023-04-05] MEDS: predniSONE 5 MG TABLET (UD) PO SCH (09:59)
[2023-04-05] MEDS: FAMOTIDINE 20 MG TABLET PO SCH (09:59)
[2023-04-05] MEDS: TACROLIMUS ANHYDROUS 1 MG CAPSULE PO SCH (09:59)
[2023-04-05] MEDS ORDERED: EPOETIN ALFA-EPBX 4,000 UNIT/ML VIAL IVPUSH ONE (14:15)
[2023-04-05 14:43] LABS: HEMATOCRIT 26.8 % (32.4-45.2); HEMOGLOBIN 8.6 GM/dL (10.7-15.3); MEAN CELL VOLUME 93.8 fl (80-96); MEAN PLT VOLUME 7.2 fl (7.5-11.1); PLATELET COUNT 225 10^3/uL (134-434); RBC 2.86 M/mm3 (3.60-5.2); RDW 17.1 % (11.6-15.6); WHITE BLOOD COUNT 4.6 K/mm3 (4.0-10.0)
[2023-04-05 14:54] LABS: POTASSIUM 4.1 mmol/L (3.5-5.1)
[2023-04-05 14:56] LABS: CALCIUM 8.2 mg/dL (8.5-10.1)
[2023-04-05 14:57] LABS: BLOOD UREA NITROGEN 31.6 mg/dL (7-18)
[2023-04-05 15:00] LABS: CREATININE 4.7 mg/dL (0.55-1.3)
[2023-04-05] MEDS ORDERED: diphenhydrAMINE HCL 25 MG CAPSULE (FP) PO ONE (15:51)
[2023-04-05] MEDS: amLODIPine BESYLATE 5 MG TABLET (FP) PO SCH (19:01)
[2023-04-05] MEDS: MELATONIN 5 MG TABLETS PO SCH (21:52)
[2023-04-05] MEDS: TOPIRAMATE 25 MG TABLET PO SCH (21:52)
[2023-04-05] MEDS: BENZOCAINE/MENTH/CETYLPYRD CL 1 EACH LOZENGE MM PRN (21:53)
[2023-04-05] MEDS ORDERED: hydrOXYzine PAMOATE 25 MG CAPSULE (FP) PO ONE (23:33)
[2023-04-06] MEDS: FUROSEMIDE 40 MG/4 ML INJECTABLE VIAL IVPUSH SCH (06:15)
[2023-04-06] MEDS: HEPARIN NA (PORCINE) 5,000 UNITS/ML 1ML VIAL SQ SCH (06:15)
[2023-04-06] MEDS: SEVELAMER CARBONATE 800 MG TAB (FP) PO SCH (06:15)
[2023-04-06] MEDS: TACROLIMUS ANHYDROUS 1 MG CAPSULE PO SCH (07:45)
[2023-04-06 08:47] VITALS: RESP 18; TEMP 97.8
[2023-04-06 09:02] LABS: BASO % 0.4 % (0-2.0); EOS % 2.5 % (0-4.5); HEMATOCRIT 27.6 % (32.4-45.2); HEMOGLOBIN 8.6 GM/dL (10.7-15.3); LYMPH % 16.8 % (8-40); MCH 29.5 pg (25.7-33.7); MCHC 31.2 g/dl (32.0-36.0); MEAN CELL VOLUME 94.5 fl (80-96); MEAN PLT VOLUME 6.9 fl (7.5-11.1); MONO % 5.9 % (3.8-10.2); NEUT % 74.4 % (42.8-82.8); PLATELET COUNT 217 10^3/uL (134-434); RBC 2.92 M/mm3 (3.60-5.2); RDW 17.4 % (11.6-15.6); WHITE BLOOD COUNT 4.2 K/mm3 (4.0-10.0)
[2023-04-06 09:23] LABS: POTASSIUM 3.7 mmol/L (3.5-5.1)
[2023-04-06 09:26] LABS: CALCIUM 8.2 mg/dL (8.5-10.1)
[2023-04-06 09:27] LABS: ALBUMIN 2.9 g/dl (3.4-5.0)
[2023-04-06 09:30] LABS: CREATININE 3.8 mg/dL (0.55-1.3)
[2023-04-06 09:31] LABS: BILIRUBIN,TOTAL 0.7 mg/dL (0.2-1); TOT PROT 5.9 g/dl (6.4-8.2)
[2023-04-06] MEDS: amLODIPine BESYLATE 5 MG TABLET (FP) PO SCH (10:10)
[2023-04-06] MEDS: predniSONE 5 MG TABLET (UD) PO SCH (10:10)
[2023-04-06] MEDS: FAMOTIDINE 20 MG TABLET PO SCH (10:11)
[2023-04-06] MEDS: BENZOCAINE/MENTH/CETYLPYRD CL 1 EACH LOZENGE MM PRN (11:17)
[2023-04-06] MEDS: guaiFENesin/CODEINE 5 ML UNIT-DOSE CUPS PO PRN (12:22)
[2023-04-06] MEDS ORDERED: SODIUM CHLORIDE 250 ML IV PRN (13:37)
[2023-04-06 14:15] VITALS: BP 157/83; PULSE 93
[2023-04-07] MEDS ORDERED: EPOETIN ALFA-EPBX 10,000 UNIT/ML VIAL SQ ONE (13:37)
== END 2023-04-06 18:31 | disposition home or self-care (01) | DRG 640 ==
LOC: JER 00:21 → JERBED 02:49 → J6S 04-05 17:37
PROVIDERS: ADMIT Internal Medicine; ATTEND Internal Medicine
PROC: 5A1D70Z Performance of Urinary Filtration, Intermittent, Less than 6 Hours Per Day (ICD-10-PCS; principal; 2023-04-05)
DX: E87.70 Fluid overload, unspecified (principal); N18.6 End stage renal disease; Q89.8 Other specified congenital malformations; I12.0 Hypertensive chronic kidney disease with stage 5 chronic kidney disease or end stage renal disease; T86.12 Kidney transplant failure; Z99.2 Dependence on renal dialysis
CPT/HCPCS: 0241U-QW; 36415; 71045-TC-FY; 71250-TC; 80048; 80053; 80061; 82728; 83010; 83540; 83550; 83615; 83735; 83880; 84100; 84439; 84443; 84466; 84484; 84703; 85025; 85027; 85045; 86704; 86803; 87340; 87517; 93005; 93010; 93306-TC; 99285-25; J1644

== ENCOUNTER 2024-07-26 07:40 | Inpatient (IN) | payer OTHER, BC ==
[2024-07-26 07:59] VITALS: BMI 32.3
[2024-07-26] MEDS ORDERED: dilTIAZem HCL 30 MG TABLET ONE (08:21)
[2024-07-26] MEDS: dilTIAZem HCL 30 MG TABLET PO ONE (08:30)
[2024-07-26 08:38] LABS: BASO % 0.4 % (0-2.0); EOS % 0.8 % (0-4.5); HEMATOCRIT 31.8 % (32.4-45.2); HEMOGLOBIN 10.6 GM/dL (10.7-15.3); MCH 33.2 pg (25.7-33.7); MCHC 33.2 g/dl (32.0-36.0); MEAN PLT VOLUME 7.1 fl (7.5-11.1); MONO % 8.1 % (3.8-10.2); NEUT % 76.7 % (42.8-82.8); PLATELET COUNT 160 10^3/uL (134-434); RBC 3.17 M/mm3 (3.60-5.2); RDW 15.7 % (11.6-15.6); WHITE BLOOD COUNT 4.1 K/mm3 (4.0-10.0)
[2024-07-26 08:48] LABS: ALBUMIN 3.5 g/dl (3.4-5.0); BLOOD UREA NITROGEN 36.2 mg/dL (7-18); CALCIUM 8.2 mg/dL (8.5-10.1)
[2024-07-26 08:51] LABS: CREATININE 5.3 mg/dL (0.55-1.3)
[2024-07-26 08:53] LABS: BILIRUBIN,TOTAL 0.8 mg/dL (0.2-1); TOT PROT 7.8 g/dl (6.4-8.2)
[2024-07-26] MEDS ORDERED: SODIUM CHLORIDE 250 ML IV PRN ×2 (12:58→14:03)
[2024-07-26] MEDS ORDERED: ALBUTEROL SO4 0.083% IH SOL 2.5 MG/3 ML VIAL.NEB. NEB ONE (13:03)
[2024-07-26 13:44] LABS: HIV INTERPRETATION NEGATIVE (NEGATIVE)
[2024-07-26] MEDS: EPOETIN ALFA-EPBX 4,000 UNIT/ML VIAL SQ ONE (14:07)
[2024-07-26] MEDS: ALBUMIN HUMAN 25% 12.5 GM/50 ML VIAL IV SCH (16:00)
[2024-07-26] MEDS ORDERED: TOPIRAMATE 25 MG TABLET ONE (18:14)
[2024-07-26] MEDS: TACROLIMUS ANHYDROUS 1 MG CAPSULE PO SCH (18:19)
[2024-07-26] MEDS: metoPROLOL SUCCINATE 25 MG TAB.SR.24H (FP) PO SCH (18:20)
[2024-07-26] MEDS: predniSONE 1 MG TABLET (FP) PO SCH (18:20)
[2024-07-26] MEDS: HEPARIN NA (PORCINE) 5,000 UNITS/ML 1ML VIAL SQ SCH (21:45)
[2024-07-26] MEDS: MELATONIN 1 MG TABLET PO SCH (22:30)
[2024-07-27 08:00] LABS: BASO % 0.6 % (0-2.0); EOS % 0.7 % (0-4.5); HEMATOCRIT 29.1 % (32.4-45.2); HEMOGLOBIN 9.5 GM/dL (10.7-15.3); LYMPH % 20.3 % (8-40); MCH 32.9 pg (25.7-33.7); MCHC 32.6 g/dl (32.0-36.0); MEAN PLT VOLUME 7.4 fl (7.5-11.1); MONO % 9.4 % (3.8-10.2); PLATELET COUNT 154 10^3/uL (134-434); RBC 2.88 M/mm3 (3.60-5.2); RDW 15.3 % (11.6-15.6); WHITE BLOOD COUNT 2.8 K/mm3 (4.0-10.0)
[2024-07-27 08:19] LABS: POTASSIUM 3.3 mmol/L (3.5-5.1)
[2024-07-27 08:33] LABS: ALBUMIN 3.4 g/dl (3.4-5.0); BLOOD UREA NITROGEN 21.1 mg/dL (7-18); CALCIUM 8.4 mg/dL (8.5-10.1); MAGNESIUM 1.8 mg/dL (1.8-2.4)
[2024-07-27 08:36] LABS: CREATININE 3.5 mg/dL (0.55-1.3)
[2024-07-27 08:37] LABS: PHOSPHOROUS 3.9 mg/dL (2.5-4.9)
[2024-07-27 08:38] LABS: BILIRUBIN,TOTAL 0.6 mg/dL (0.2-1); TOT PROT 7.3 g/dl (6.4-8.2)
[2024-07-27] MEDS: metoPROLOL SUCCINATE 25 MG TAB.SR.24H (FP) PO SCH (09:38)
[2024-07-27 14:29] LABS: EPI CELLS >36 /uL (0-25.1); HYALINE CASTS 195 /uL (0-3.1); PH,URINE 7.5 (5.0-8.0); URINE APPEARANCE TURBID; URINE BACTERIA 352 /uL (0-1359); URINE BILIRUBIN 1+ (NEGATIVE); URINE COLOR ORANGE; URINE GLUCOSE (UA) NEGATIVE (NEGATIVE); URINE KETONE NEGATIVE (NEGATIVE); URINE LEUK ESTERASE NEGATIVE (NEGATIVE); URINE NITRITE NEGATIVE (NEGATIVE); URINE PROTEIN 3+ (NEGATIVE); URINE RBC 102 /uL (0-23.9); URINE UROBILINOGEN 0.2 mg/dL (0.2-1.0)
[2024-07-27 15:02] LABS: URINE WBC 3509.7 /uL (0-25.8); YEAST NONE SEEN (NEGATIVE)
[2024-07-27] MEDS ORDERED: SODIUM CHLORIDE 250 ML IV PRN (15:31)
[2024-07-27] MEDS: POTASSIUM CHLORIDE ORAL LIQUID 20 MEQ/15 ML PO ONE (18:31)
[2024-07-27] MEDS: TACROLIMUS ANHYDROUS 1 MG CAPSULE PO SCH (21:26)
[2024-07-27] MEDS: CARVEDILOL 12.5 MG TABLET (FP) PO SCH (21:27)
[2024-07-27] MEDS ORDERED: CARVEDILOL 6.25 MG TABLET (FP) PO SCH (22:00)
[2024-07-28] MEDS: CEFTRIAXONE 1 G/50 ML PREMIX 50 ML IVPB SCH (01:40)
[2024-07-28 08:38] LABS: BASO % 0.7 % (0-2.0); EOS % 1.4 % (0-4.5); HEMATOCRIT 32.2 % (32.4-45.2); HEMOGLOBIN 10.6 GM/dL (10.7-15.3); LYMPH % 25.4 % (8-40); MCH 33.4 pg (25.7-33.7); MCHC 32.9 g/dl (32.0-36.0); MEAN CELL VOLUME 101.6 fl (80-96); MEAN PLT VOLUME 7.2 fl (7.5-11.1); MONO % 8.6 % (3.8-10.2); NEUT % 63.9 % (42.8-82.8); PLATELET COUNT 171 10^3/uL (134-434); RBC 3.17 M/mm3 (3.60-5.2); RDW 15.4 % (11.6-15.6)
[2024-07-28 08:44] LABS: POTASSIUM 3.9 mmol/L (3.5-5.1)
[2024-07-28 08:51] LABS: ALBUMIN 3.4 g/dl (3.4-5.0); CALCIUM 8.3 mg/dL (8.5-10.1)
[2024-07-28 08:52] LABS: BLOOD UREA NITROGEN 31.9 mg/dL (7-18)
[2024-07-28 08:54] LABS: BILIRUBIN,TOTAL 0.5 mg/dL (0.2-1); TOT PROT 7.5 g/dl (6.4-8.2)
[2024-07-28 08:55] LABS: CREATININE 4.8 mg/dL (0.55-1.3); PHOSPHOROUS 4.4 mg/dL (2.5-4.9)
[2024-07-28] MEDS: amLODIPine BESYLATE 10 MG TABLET (FP) PO SCH (10:04)
[2024-07-28] MEDS: predniSONE 5 MG TABLET (UD) PO SCH (10:04)
[2024-07-28 14:24] VITALS: TEMP 97.9
[2024-07-28 17:17] VITALS: BP 100/77; PULSE 55; RESP 17
== END 2024-07-28 18:35 | disposition left against medical advice (07) | DRG 308 ==
LOC: JER 07:40 → JERBED 10:21 → OBSVTOIN 11:07 → J4W 18:52
PROVIDERS: ADMIT Internal Medicine; ATTEND Internal Medicine
PROC: 5A1D70Z Performance of Urinary Filtration, Intermittent, Less than 6 Hours Per Day (ICD-10-PCS; principal; 2024-07-26)
DX: I47.10 Supraventricular tachycardia, unspecified (principal); N18.6 End stage renal disease; I12.0 Hypertensive chronic kidney disease with stage 5 chronic kidney disease or end stage renal disease; T86.12 Kidney transplant failure; N39.0 Urinary tract infection, site not specified; D63.8 Anemia in other chronic diseases classified elsewhere; I35.1 Nonrheumatic aortic (valve) insufficiency; Y83.0 Surgical operation with transplant of whole organ as the cause of abnormal reaction of the patient, or of later complication, without mention of misadventure at the time of the procedure; E87.70 Fluid overload, unspecified
CPT/HCPCS: 36415; 71045-TC-FY; 80053; 81003; 83735; 84100; 84484; 84703; 85025; 86704; 86803; 87086; 87186; 87340; 87389; 93005; 93010; 93306-TC; 93970-TC; 99285-25; G0378; J1644; Q5106

== ENCOUNTER 2024-08-02 12:20 | Inpatient (IN) | payer OTHER, BC ==
[2024-08-02] MEDS ORDERED: ACETAMINOPHEN 325 MG TABLET (FP) ONE (13:06)
[2024-08-02] MEDS ORDERED: ALBUTEROL SO4 2.5/IPRATROPIUM 0.5 INH SOL 3 ML VIAL.NEB. NEB ONE (13:06)
[2024-08-02] MEDS: ACETAMINOPHEN 500 MG TABLET (FP) PO ONE (13:16)
[2024-08-02] MEDS: ALBUTEROL SO4 2.5/IPRATROPIUM 0.5 INH SOL 3 ML VIAL.NEB. NEB SCH (13:32)
[2024-08-02 13:39] LABS: VENOUS BASE EXCESS -2.2 mmol/L (-2-2); VENOUS PCO2 61.6 mmHg (38-52); VENOUS PH 7.242 (7.310-7.410)
[2024-08-02] MEDS ORDERED: PIPERACILLIN/TAZOB 3.375 GM 3.375 GM/50 ML BAG IVPB ONE (13:41)
[2024-08-02 13:45] LABS: BASO % 0.4 % (0-2.0); EOS % 0.2 % (0-4.5); HEMATOCRIT 32.3 % (32.4-45.2); HEMOGLOBIN 10.4 GM/dL (10.7-15.3); LYMPH % 6.2 % (8-40); MCH 32.8 pg (25.7-33.7); MCHC 32.2 g/dl (32.0-36.0); MEAN PLT VOLUME 7.3 fl (7.5-11.1); MONO % 6.3 % (3.8-10.2); NEUT % 86.9 % (42.8-82.8); PLATELET COUNT 105 10^3/uL (134-434); RBC 3.17 M/mm3 (3.60-5.2); RDW 16.4 % (11.6-15.6); WHITE BLOOD COUNT 5.7 K/mm3 (4.0-10.0)
[2024-08-02] MEDS: PIPERACILLIN/TAZOB 4.5 GM 3.375 GM in DEXTROSE 5%-WATER 100 ML IVPB ONE (13:46)
[2024-08-02 13:55] LABS: INR 1.34 (0.83-1.09); PROTHROMBIN TIME (PATIENT) 14.6 SEC (9.7-13.0)
[2024-08-02 13:58] LABS: ACTIVATED PTT 30.9 SECONDS (25.2-36.5)
[2024-08-02] MEDS ORDERED: VANCOMYCIN 1 GM PREMIX (F) 1 GM/200 ML BAG ONE (14:10)
[2024-08-02 14:17] LABS: POTASSIUM 4.4 mmol/L (3.5-5.1)
[2024-08-02 14:19] LABS: ALBUMIN 3.3 g/dl (3.4-5.0); BLOOD UREA NITROGEN 42.6 mg/dL (7-18)
[2024-08-02 14:22] LABS: CREATININE 5.9 mg/dL (0.55-1.3)
[2024-08-02 14:24] LABS: BILIRUBIN,TOTAL 0.6 mg/dL (0.2-1); TOT PROT 7.5 g/dl (6.4-8.2)
[2024-08-02] MEDS: VANCOMYCIN 1,000 MG in DEXTROSE 5%-WATER - 250 ML IVPB ONE (14:31)
[2024-08-02] MEDS ORDERED: FUROSEMIDE 40 MG/4 ML INJECTABLE VIAL IVPUSH SCH (15:34)
[2024-08-02] MEDS ORDERED: predniSONE 20 MG TABLET (UD) PO SCH (15:45)
[2024-08-02] MEDS ORDERED: SODIUM CHLORIDE 250 ML IV PRN (15:56)
[2024-08-02] MEDS ORDERED: PATIENT'S OWN MEDICATION (NON-FORMULARY) (Rizatriptan Benzoate [Rizatriptan] 10 MG Tablet) PO PRN (17:28)
[2024-08-02] MEDS: EPOETIN ALFA-EPBX 4,000 UNIT/ML VIAL SQ ONE (17:32)
[2024-08-02] MEDS ORDERED: PIPERACILLIN/TAZOB 2.25 GM 2.25 GM/50 ML BAG IVPB SCH (18:00)
[2024-08-02] MEDS ORDERED: PIPERACILLIN/TAZOB 2.25 GM 2.25 GM in DEXTROSE 5%-WATER - 50 ML IVPB SCH (18:00)
[2024-08-02] MEDS: ALBUTEROL SO4 2.5/IPRATROPIUM 0.5 INH SOL 3 ML VIAL.NEB. NEB PRN (20:23)
[2024-08-02] MEDS: ACETAMINOPHEN 325 MG TABLET (FP) PO PRN (20:33)
[2024-08-02] MEDS: guaiFENesin 200 MG/10 ML 10 ML UNIT-DOSE CUPS PO PRN (20:33)
[2024-08-02] MEDS: HEPARIN NA (PORCINE) 5,000 UNITS/ML 1ML VIAL SQ SCH (22:00)
[2024-08-02] MEDS: CARVEDILOL 6.25 MG TABLET (FP) PO SCH (22:00)
[2024-08-02] MEDS: PIPERACILLIN/TAZOB 2.25 GM 2.25 GM/50 ML BAG IVPB SCH (22:00)
[2024-08-02] MEDS: TACROLIMUS ANHYDROUS 1 MG CAPSULE PO SCH (22:00)
[2024-08-03] MEDS: ACETAMINOPHEN 1000 MG/100 ML BAG IVPB ONE ×2 (00:48→05:40)
[2024-08-03] MEDS: MELATONIN 5 MG TABLETS PO PRN (01:19)
[2024-08-03] MEDS: ALBUTEROL SO4 2.5/IPRATROPIUM 0.5 INH SOL 3 ML VIAL.NEB. NEB PRN (05:39)
[2024-08-03] MEDS: LIDOCAINE 4% PATCH TP ONE (05:40)
[2024-08-03] MEDS: FUROSEMIDE 40 MG/4 ML INJECTABLE VIAL IVPUSH SCH (06:21)
[2024-08-03 07:54] LABS: HEMATOCRIT 30.9 % (32.4-45.2); MCH 32.9 pg (25.7-33.7); MCHC 32.3 g/dl (32.0-36.0); MEAN CELL VOLUME 102.1 fl (80-96); MEAN PLT VOLUME 8.3 fl (7.5-11.1); PLATELET COUNT 95 10^3/uL (134-434); RBC 3.03 M/mm3 (3.60-5.2); RDW 15.5 % (11.6-15.6); WHITE BLOOD COUNT 8.1 K/mm3 (4.0-10.0)
[2024-08-03 08:12] LABS: POTASSIUM 3.9 mmol/L (3.5-5.1)
[2024-08-03 08:27] LABS: CALCIUM 7.9 mg/dL (8.5-10.1)
[2024-08-03 08:28] LABS: ALBUMIN 2.9 g/dl (3.4-5.0); BLOOD UREA NITROGEN 33.6 mg/dL (7-18); MAGNESIUM 1.9 mg/dL (1.8-2.4)
[2024-08-03 08:32] LABS: CREATININE 4.7 mg/dL (0.55-1.3); PHOSPHOROUS 4.9 mg/dL (2.5-4.9)
[2024-08-03 08:33] LABS: BILIRUBIN,TOTAL 0.8 mg/dL (0.2-1); TOT PROT 6.7 g/dl (6.4-8.2)
[2024-08-03 10:07] LABS: ANISOCYTOSIS 1+; MACROCYTOSIS 0
[2024-08-03] MEDS: CALCITRIOL 0.25 MCG CAPSULE (FP) PO SCH (10:10)
[2024-08-03] MEDS: SEVELAMER CARBONATE 800 MG TAB (FP) PO SCH (10:10)
[2024-08-03] MEDS: amLODIPine BESYLATE 10 MG TABLET (FP) PO SCH (10:10)
[2024-08-03] MEDS ORDERED: SODIUM CHLORIDE 250 ML IV PRN (11:19)
[2024-08-03] MEDS: PIPERACILLIN/TAZOB 2.25 GM 2.25 GM/50 ML BAG IVPB SCH (17:51)
[2024-08-03] MEDS: SODIUM CHLORIDE 250 ML IV STA (18:34)
[2024-08-03] MEDS: CODEINE SO4 30 MG TABLET PO PRN (19:34)
[2024-08-03] MEDS: CARVEDILOL 6.25 MG TABLET (FP) PO SCH (22:00)
[2024-08-03] MEDS: LIDOCAINE PATCH REMOVAL MC SCH (22:07)
[2024-08-03 22:37] LABS: CALCIUM 8.2 mg/dL (8.5-10.1)
[2024-08-03 22:38] LABS: BLOOD UREA NITROGEN 36.4 mg/dL (7-18)
[2024-08-03 22:42] LABS: BILIRUBIN,TOTAL 0.7 mg/dL (0.2-1); TOT PROT 7.2 g/dl (6.4-8.2)
[2024-08-03] MEDS: METHYL SALICYLATE/MENTHOL 30 GM TUBE TP PRN (23:56)
[2024-08-04] MEDS: SODIUM CHLORIDE 250 ML IV STA ×2 (01:32→06:18)
[2024-08-04] MEDS: MIDODRINE HCL 5 MG TABLET PO SCH ×3 (09:46→13:21)
[2024-08-04 09:49] LABS: BASO % 0.1 % (0-2.0); EOS % 0.1 % (0-4.5); HEMATOCRIT 30.5 % (32.4-45.2); HEMOGLOBIN 10.1 GM/dL (10.7-15.3); LYMPH % 4.9 % (8-40); MCH 33.6 pg (25.7-33.7); MEAN CELL VOLUME 101.8 fl (80-96); MEAN PLT VOLUME 8.4 fl (7.5-11.1); NEUT % 90.9 % (42.8-82.8); PLATELET COUNT 111 10^3/uL (134-434); WHITE BLOOD COUNT 9.2 K/mm3 (4.0-10.0)
[2024-08-04] MEDS ORDERED: MIDODRINE HCL 5 MG TABLET PO ONE (10:00)
[2024-08-04 10:11] LABS: POTASSIUM 4.2 mmol/L (3.5-5.1)
[2024-08-04 10:21] LABS: ALBUMIN 2.8 g/dl (3.4-5.0); BLOOD UREA NITROGEN 42.9 mg/dL (7-18)
[2024-08-04 10:24] LABS: CREATININE 5.3 mg/dL (0.55-1.3)
[2024-08-04 10:26] LABS: BILIRUBIN,TOTAL 0.6 mg/dL (0.2-1)
[2024-08-04 10:27] LABS: TOT PROT 6.8 g/dl (6.4-8.2)
[2024-08-04] MEDS ORDERED: METHYL SALICYLATE/MENTHOL 30 GM TUBE TP PRN (11:22)
[2024-08-04] MEDS ORDERED: ALBUTEROL SO4 2.5/IPRATROPIUM 0.5 INH SOL 3 ML VIAL.NEB. NEB PRN ×2 (11:22→12:35)
[2024-08-04] MEDS ORDERED: SODIUM CHLORIDE 250 ML IV PRN ×2 (11:22→14:06)
[2024-08-04] MEDS ORDERED: PATIENT'S OWN MEDICATION (NON-FORMULARY) (Rizatriptan Benzoate [Rizatriptan] 10 MG) PO PRN (11:22)
[2024-08-04] MEDS: ALBUTEROL SO4 2.5/IPRATROPIUM 0.5 INH SOL 3 ML VIAL.NEB. NEB PRN (11:40)
[2024-08-04] MEDS ORDERED: NOREPINEPHRINE BITARTRATE 4 MG/4 ML ML IV ONE (12:34)
[2024-08-04] MEDS: methylPREDNISolone NA SUCC 40 MG/1 ML VIAL IVPUSH SCH (13:30)
[2024-08-04] MEDS: SEVELAMER CARBONATE 800 MG TAB (FP) PO SCH (15:07)
[2024-08-04] MEDS: ALBUMIN HUMAN 25% 12.5 GM/50 ML VIAL IV SCH (15:25)
[2024-08-04] MEDS: EPOETIN ALFA-EPBX 4,000 UNIT/ML VIAL IVPUSH ONE (16:37)
[2024-08-04] MEDS: PIPERACILLIN/TAZOB 2.25 GM 2.25 GM/50 ML BAG IVPB SCH (18:35)
[2024-08-04] MEDS: NOREPINEPHRINE BITARTRATE 4,000 MCG in DEXTROSE 5%-WATER - 496 ML IV SCH (19:10)
[2024-08-04] MEDS: guaiFENesin 200 MG/10 ML 10 ML UNIT-DOSE CUPS PO PRN (20:38)
[2024-08-04] MEDS: HEPARIN NA (PORCINE) 5,000 UNITS/ML 1ML VIAL SQ SCH (21:22)
[2024-08-04] MEDS: MUPIROCIN 2% TOPICAL OINTMENT FOR DECOLONIZATION NS SCH (21:24)
[2024-08-04] MEDS: CHLORHEXIDINE GLUCONATE 4% CLEANSER FOR DECOLONIZATION TP SCH (21:36)
[2024-08-04] MEDS: TACROLIMUS ANHYDROUS 1 MG CAPSULE PO SCH (23:42)
[2024-08-05] MEDS: CODEINE SO4 30 MG TABLET PO PRN (06:15)
[2024-08-05 07:16] LABS: BASO % 0.1 % (0-2.0); EOS % 0.1 % (0-4.5); HEMATOCRIT 31.3 % (32.4-45.2); HEMOGLOBIN 10.1 GM/dL (10.7-15.3); LYMPH % 6.2 % (8-40); MCH 32.9 pg (25.7-33.7); MCHC 32.3 g/dl (32.0-36.0); MONO % 3.4 % (3.8-10.2); NEUT % 90.2 % (42.8-82.8); PLATELET COUNT 168 10^3/uL (134-434); RBC 3.07 M/mm3 (3.60-5.2); RDW 15.9 % (11.6-15.6); WHITE BLOOD COUNT 11.6 K/mm3 (4.0-10.0)
[2024-08-05 07:30] LABS: POTASSIUM 4.4 mmol/L (3.5-5.1)
[2024-08-05 07:42] LABS: ALBUMIN 3.2 g/dl (3.4-5.0); BLOOD UREA NITROGEN 33.9 mg/dL (7-18); CALCIUM 8.5 mg/dL (8.5-10.1)
[2024-08-05 07:43] LABS: MAGNESIUM 2.1 mg/dL (1.8-2.4)
[2024-08-05 07:45] LABS: CREATININE 4.4 mg/dL (0.55-1.3)
[2024-08-05 07:47] LABS: BILIRUBIN,TOTAL 0.7 mg/dL (0.2-1); TOT PROT 7.4 g/dl (6.4-8.2)
[2024-08-05] MEDS: MIDODRINE HCL 5 MG TABLET PO ONE (08:37)
[2024-08-05] MEDS ORDERED: MIDODRINE HCL 5 MG TABLET PO SCH (10:00)
[2024-08-05] MEDS: CALCITRIOL 0.25 MCG CAPSULE (FP) PO SCH (10:21)
[2024-08-05] MEDS: ACETAMINOPHEN 325 MG TABLET (FP) PO PRN (10:24)
[2024-08-05] MEDS ORDERED: SODIUM CHLORIDE 250 ML IV PRN (13:01)
[2024-08-05] MEDS: MIDODRINE HCL 5 MG TABLET PO SCH (14:05)
[2024-08-05] MEDS: diphenhydrAMINE HCL 25 MG CAPSULE (FP) PO ONE (15:25)
[2024-08-06 07:42] LABS: HEMATOCRIT 31.4 % (32.4-45.2); HEMOGLOBIN 10.1 GM/dL (10.7-15.3); MCH 32.8 pg (25.7-33.7); MCHC 32.1 g/dl (32.0-36.0); MEAN CELL VOLUME 102.4 fl (80-96); MEAN PLT VOLUME 7.5 fl (7.5-11.1); PLATELET COUNT 183 10^3/uL (134-434); RBC 3.07 M/mm3 (3.60-5.2); RDW 16.1 % (11.6-15.6); WHITE BLOOD COUNT 9.1 K/mm3 (4.0-10.0)
[2024-08-06 07:47] LABS: POTASSIUM 4.9 mmol/L (3.5-5.1)
[2024-08-06 08:02] LABS: BILIRUBIN,TOTAL 0.6 mg/dL (0.2-1)
[2024-08-06 08:03] LABS: BLOOD UREA NITROGEN 51.6 mg/dL (7-18); CALCIUM 7.9 mg/dL (8.5-10.1); MAGNESIUM 2.3 mg/dL (1.8-2.4)
[2024-08-06 08:04] LABS: CREATININE 5.2 mg/dL (0.55-1.3)
[2024-08-06 08:05] LABS: PHOSPHOROUS 6.1 mg/dL (2.5-4.9)
[2024-08-06 08:06] LABS: TOT PROT 7.3 g/dl (6.4-8.2)
[2024-08-06 09:51] LABS: ANISOCYTOSIS 1+; MACROCYTOSIS 1+
[2024-08-06] MEDS: MIDODRINE HCL 5 MG TABLET PO SCH ×2 (10:16→17:38)
[2024-08-06] MEDS ORDERED: ACETAMINOPHEN 325 MG TABLET (FP) PO PRN (18:03)
[2024-08-06] MEDS: ACETAMINOPHEN 1000 MG/100 ML BAG IVPB PRN (18:25)
[2024-08-06] MEDS ORDERED: SODIUM CHLORIDE 250 ML IV PRN (20:51)
[2024-08-06] MEDS: MELATONIN 5 MG TABLETS PO PRN (21:56)
[2024-08-07 07:34] LABS: HEMATOCRIT 32.6 % (32.4-45.2); HEMOGLOBIN 10.4 GM/dL (10.7-15.3); MCH 32.4 pg (25.7-33.7); MCHC 31.7 g/dl (32.0-36.0); MEAN PLT VOLUME 7.3 fl (7.5-11.1); PLATELET COUNT 217 10^3/uL (134-434); RDW 16.1 % (11.6-15.6); WHITE BLOOD COUNT 7.9 K/mm3 (4.0-10.0)
[2024-08-07 07:39] LABS: POTASSIUM 4.9 mmol/L (3.5-5.1)
[2024-08-07 07:44] LABS: BILIRUBIN,TOTAL 0.7 mg/dL (0.2-1)
[2024-08-07 07:45] LABS: CALCIUM 7.9 mg/dL (8.5-10.1); MAGNESIUM 2.3 mg/dL (1.8-2.4)
[2024-08-07 07:48] LABS: PHOSPHOROUS 6.4 mg/dL (2.5-4.9)
[2024-08-07 07:50] LABS: TOT PROT 7.5 g/dl (6.4-8.2)
[2024-08-07] MEDS: VITAMIN B COMP W-C 1 EA TABLET (NEPHRO-VITE) PO SCH (09:32)
[2024-08-07 12:53] LABS: ANISOCYTOSIS 0; MACROCYTOSIS 2+
[2024-08-07] MEDS: LIDOCAINE 4% PATCH TP ONE (16:59)
[2024-08-07] MEDS ORDERED: SODIUM CHLORIDE 250 ML IV PRN ×2 (19:15)
[2024-08-07] MEDS ORDERED: PATIENT'S OWN MEDICATION (NON-FORMULARY) (Rizatriptan Benzoate [Rizatriptan] 10 MG) PO PRN (19:15)
[2024-08-07] MEDS ORDERED: ALBUTEROL SO4 2.5/IPRATROPIUM 0.5 INH SOL 3 ML VIAL.NEB. NEB PRN (19:15)
[2024-08-07] MEDS ORDERED: METHYL SALICYLATE/MENTHOL 30 GM TUBE TP PRN (19:15)
[2024-08-07] MEDS: MIDODRINE HCL 5 MG TABLET PO SCH (21:17)
[2024-08-07] MEDS: TACROLIMUS ANHYDROUS 1 MG CAPSULE PO SCH (21:17)
[2024-08-07] MEDS: LIDOCAINE PATCH REMOVAL MC SCH (21:24)
[2024-08-07] MEDS: HEPARIN NA (PORCINE) 5,000 UNITS/ML 1ML VIAL SQ SCH (21:25)
[2024-08-07] MEDS ORDERED: MUPIROCIN 2% TOPICAL OINTMENT FOR DECOLONIZATION NS SCH (22:00)
[2024-08-07] MEDS ORDERED: CHLORHEXIDINE GLUCONATE 4% CLEANSER FOR DECOLONIZATION TP SCH (22:00)
[2024-08-08] MEDS: PIPERACILLIN/TAZOB 2.25 GM 2.25 GM/50 ML BAG IVPB SCH (01:50)
[2024-08-08] MEDS: SEVELAMER CARBONATE 800 MG TAB (FP) PO SCH (08:43)
[2024-08-08] MEDS: predniSONE 20 MG TABLET (UD) PO SCH (09:19)
[2024-08-08] MEDS: CALCITRIOL 0.25 MCG CAPSULE (FP) PO SCH (09:19)
[2024-08-08] MEDS: VITAMIN B COMP W-C 1 EA TABLET (NEPHRO-VITE) PO SCH (09:19)
[2024-08-08 10:06] LABS: HEMATOCRIT 32.4 % (32.4-45.2); HEMOGLOBIN 10.4 GM/dL (10.7-15.3); MCH 32.5 pg (25.7-33.7); MCHC 32.2 g/dl (32.0-36.0); MEAN CELL VOLUME 101.1 fl (80-96); MEAN PLT VOLUME 7.3 fl (7.5-11.1); PLATELET COUNT 228 10^3/uL (134-434); RBC 3.21 M/mm3 (3.60-5.2); WHITE BLOOD COUNT 10.9 K/mm3 (4.0-10.0)
[2024-08-08 10:25] LABS: POTASSIUM 4.2 mmol/L (3.5-5.1)
[2024-08-08 10:29] LABS: ALBUMIN 3.1 g/dl (3.4-5.0); CALCIUM 8.3 mg/dL (8.5-10.1); MAGNESIUM 2.4 mg/dL (1.8-2.4)
[2024-08-08 10:32] LABS: CREATININE 4.5 mg/dL (0.55-1.3)
[2024-08-08 10:33] LABS: PHOSPHOROUS 4.2 mg/dL (2.5-4.9)
[2024-08-08 10:34] LABS: BILIRUBIN,TOTAL 0.9 mg/dL (0.2-1)
[2024-08-08 10:39] LABS: TOT PROT 7.4 g/dl (6.4-8.2)
[2024-08-08 12:08] LABS: ANISOCYTOSIS 0; MACROCYTOSIS 1+
[2024-08-08] MEDS: ALBUTEROL SO4 2.5/IPRATROPIUM 0.5 INH SOL 3 ML VIAL.NEB. NEB PRN (20:45)
[2024-08-08] MEDS: MELATONIN 5 MG TABLETS PO PRN (21:41)
[2024-08-08] MEDS: guaiFENesin 200 MG/10 ML 10 ML UNIT-DOSE CUPS PO PRN (23:37)
[2024-08-08] MEDS: ACETAMINOPHEN 325 MG TABLET (FP) PO PRN (23:37)
[2024-08-09] MEDS ORDERED: SODIUM CHLORIDE 250 ML IV PRN (10:28)
[2024-08-09] MEDS: HEPARIN NA (PORCINE) 5,000 UNITS/ML 1ML VIAL IVPUSH ONE (10:37)
[2024-08-09 11:31] LABS: HEMATOCRIT 31.4 % (32.4-45.2); HEMOGLOBIN 10.6 GM/dL (10.7-15.3); MCH 33.5 pg (25.7-33.7); MCHC 33.8 g/dl (32.0-36.0); MEAN CELL VOLUME 99.2 fl (80-96); MEAN PLT VOLUME 7.2 fl (7.5-11.1); PLATELET COUNT 215 10^3/uL (134-434); RBC 3.16 M/mm3 (3.60-5.2); RDW 16.1 % (11.6-15.6); WHITE BLOOD COUNT 9.2 K/mm3 (4.0-10.0)
[2024-08-09] MEDS: ALBUMIN HUMAN 25% 12.5 GM/50 ML VIAL IV SCH (11:56)
[2024-08-09] MEDS: EPOETIN ALFA-EPBX 4,000 UNIT/ML VIAL IVPUSH ONE (11:56)
[2024-08-09 12:07] LABS: POTASSIUM 3.7 mmol/L (3.5-5.1)
[2024-08-09 12:09] LABS: ALBUMIN 3.2 g/dl (3.4-5.0); BLOOD UREA NITROGEN 52.8 mg/dL (7-18); CALCIUM 8.5 mg/dL (8.5-10.1)
[2024-08-09 12:14] LABS: BILIRUBIN,TOTAL 0.8 mg/dL (0.2-1); CREATININE 4.3 mg/dL (0.55-1.3); TOT PROT 7.3 g/dl (6.4-8.2)
[2024-08-09 12:29] LABS: HCV DIAGNOSTIC IN-HOUSE W/RFLX NON-REACTIVE (NONREACTIVE)
[2024-08-09] MEDS: AMOX TR/POT CLAV 500MG/125MG TABLETS (FP) PO SCH (18:18)
[2024-08-10] MEDS: CODEINE SO4 30 MG TABLET PO PRN (01:30)
[2024-08-10] MEDS: BENZONATATE 200 MG CAPSULE PO PRN (05:26)
[2024-08-10] MEDS: NYSTATIN 500,000 UNITS/5 ML SUSPENSION PO SCH ×2 (06:23→17:35)
[2024-08-10 09:56] LABS: HEMATOCRIT 32.3 % (32.4-45.2); HEMOGLOBIN 10.5 GM/dL (10.7-15.3); MCH 32.8 pg (25.7-33.7); MCHC 32.7 g/dl (32.0-36.0); MEAN CELL VOLUME 100.2 fl (80-96); MEAN PLT VOLUME 6.9 fl (7.5-11.1); PLATELET COUNT 222 10^3/uL (134-434); RBC 3.22 M/mm3 (3.60-5.2); RDW 15.6 % (11.6-15.6); WHITE BLOOD COUNT 9.9 K/mm3 (4.0-10.0)
[2024-08-10 10:18] LABS: CALCIUM 8.6 mg/dL (8.5-10.1)
[2024-08-10 10:19] LABS: ALBUMIN 3.4 g/dl (3.4-5.0); BLOOD UREA NITROGEN 54.2 mg/dL (7-18)
[2024-08-10 10:22] LABS: BILIRUBIN,TOTAL 0.7 mg/dL (0.2-1); CREATININE 4.7 mg/dL (0.55-1.3)
[2024-08-10 10:24] LABS: TOT PROT 7.6 g/dl (6.4-8.2)
[2024-08-10 13:11] LABS: HEMATOCRIT 32.3 % (32.4-45.2); HEMOGLOBIN 10.5 GM/dL (10.7-15.3); MCH 32.6 pg (25.7-33.7); MCHC 32.6 g/dl (32.0-36.0); MEAN CELL VOLUME 99.9 fl (80-96); MEAN PLT VOLUME 7.1 fl (7.5-11.1); PLATELET COUNT 220 10^3/uL (134-434); RBC 3.24 M/mm3 (3.60-5.2); RDW 15.8 % (11.6-15.6)
[2024-08-10 13:29] LABS: POTASSIUM 4.1 mmol/L (3.5-5.1)
[2024-08-10 13:32] LABS: ALBUMIN 3.2 g/dl (3.4-5.0); CALCIUM 8.3 mg/dL (8.5-10.1)
[2024-08-10] MEDS: HYDROmorphone HCL CARPU-JECT 2 MG/1 ML DISP.SYRIN IVPUSH PRN ×2 (13:32→16:58)
[2024-08-10 13:33] LABS: BLOOD UREA NITROGEN 53.1 mg/dL (7-18)
[2024-08-10 13:34] LABS: CREATININE 4.8 mg/dL (0.55-1.3)
[2024-08-10 13:37] LABS: BILIRUBIN,TOTAL 0.7 mg/dL (0.2-1); TOT PROT 7.3 g/dl (6.4-8.2)
[2024-08-10] MEDS ORDERED: METHYL SALICYLATE/MENTHOL 30 GM TUBE TP PRN (13:45)
[2024-08-10] MEDS ORDERED: CODEINE SO4 30 MG TABLET PO PRN (13:45)
[2024-08-10] MEDS ORDERED: guaiFENesin 200 MG/10 ML 10 ML UNIT-DOSE CUPS PO PRN (13:45)
[2024-08-10] MEDS: MIDODRINE HCL 5 MG TABLET PO SCH (14:07)
[2024-08-10] MEDS: ACETAMINOPHEN 1000 MG/100 ML BAG IVPB SCH (14:18)
[2024-08-10 14:42] LABS: BODY FLUID MACROPHAGES 92 %; BODY FLUID MONOCYTE 2 %
[2024-08-10 14:43] LABS: BF WBC & OTHER NUCLEATED CELLS 1518 /mm3
[2024-08-10] MEDS: ACETAMINOPHEN 325 MG TABLET (FP) PO PRN (14:54)
[2024-08-10 15:27] VITALS: BMI 32.4
[2024-08-10] MEDS: SEVELAMER CARBONATE 800 MG TAB (FP) PO SCH (17:35)
[2024-08-10] MEDS: AMOX TR/POT CLAV 500MG/125MG TABLETS (FP) PO SCH (17:35)
[2024-08-10] MEDS: ALBUTEROL SO4 2.5/IPRATROPIUM 0.5 INH SOL 3 ML VIAL.NEB. NEB PRN (18:54)
[2024-08-10] MEDS ORDERED: ACETAMINOPHEN 1000 MG/100 ML BAG IVPB SCH (20:15)
[2024-08-10] MEDS: ACETAMINOPHEN 1000 MG/100 ML BAG IVPB ONE (21:16)
[2024-08-10] MEDS: LIDOCAINE PATCH REMOVAL MC SCH (21:26)
[2024-08-10] MEDS: TACROLIMUS ANHYDROUS 1 MG CAPSULE PO SCH (22:51)
[2024-08-10] MEDS: MELATONIN 5 MG TABLETS PO PRN (22:52)
[2024-08-11] MEDS ORDERED: SODIUM CHLORIDE 250 ML IV PRN ×2 (09:00→09:55)
[2024-08-11 10:01] LABS: HEMATOCRIT 31.6 % (32.4-45.2); HEMOGLOBIN 10.5 GM/dL (10.7-15.3); MCH 33.2 pg (25.7-33.7); MCHC 33.2 g/dl (32.0-36.0); MEAN CELL VOLUME 99.9 fl (80-96); MEAN PLT VOLUME 7.2 fl (7.5-11.1); PLATELET COUNT 180 10^3/uL (134-434); RBC 3.16 M/mm3 (3.60-5.2); RDW 15.8 % (11.6-15.6); WHITE BLOOD COUNT 8.4 K/mm3 (4.0-10.0)
[2024-08-11 10:20] LABS: POTASSIUM 4.4 mmol/L (3.5-5.1)
[2024-08-11 10:21] LABS: BLOOD UREA NITROGEN 63.2 mg/dL (7-18); CALCIUM 8.4 mg/dL (8.5-10.1)
[2024-08-11 10:25] LABS: CREATININE 5.5 mg/dL (0.55-1.3)
[2024-08-11] MEDS: EPOETIN ALFA-EPBX 4,000 UNIT/ML VIAL SQ ONE (10:29)
[2024-08-11 13:07] LABS: BODY FLUID ALBUMIN 2.2 g/dL (Not Estab.)
[2024-08-11] MEDS: CALCITRIOL 0.25 MCG CAPSULE (FP) PO SCH (13:57)
[2024-08-11] MEDS: VITAMIN B COMP W-C 1 EA TABLET (NEPHRO-VITE) PO SCH (13:58)
[2024-08-11] MEDS: ACETAMINOPHEN 1000 MG/100 ML BAG IVPB PRN (21:12)
[2024-08-12] MEDS: HYDROmorphone HCL CARPU-JECT 2 MG/1 ML DISP.SYRIN IVPUSH ONE (05:52)
[2024-08-12] MEDS: HYDROmorphone HCl 2 MG/ML VIAL IVPUSH ONE (07:49)
[2024-08-12 09:49] LABS: HEMATOCRIT 31.8 % (32.4-45.2); HEMOGLOBIN 10.6 GM/dL (10.7-15.3); MCH 33.4 pg (25.7-33.7); MCHC 33.2 g/dl (32.0-36.0); MEAN CELL VOLUME 100.7 fl (80-96); MEAN PLT VOLUME 7.1 fl (7.5-11.1); PLATELET COUNT 171 10^3/uL (134-434); RBC 3.16 M/mm3 (3.60-5.2)
[2024-08-12] MEDS: EPOETIN ALFA-EPBX 4,000 UNIT/ML VIAL SQ ONE (10:06)
[2024-08-12 10:22] LABS: POTASSIUM 3.9 mmol/L (3.5-5.1)
[2024-08-12 10:23] LABS: CALCIUM 8.3 mg/dL (8.5-10.1)
[2024-08-12 10:24] LABS: BLOOD UREA NITROGEN 35.2 mg/dL (7-18)
[2024-08-12 10:27] LABS: CREATININE 3.7 mg/dL (0.55-1.3)
[2024-08-12] MEDS: HYDROmorphone HCL CARPU-JECT 2 MG/1 ML DISP.SYRIN IVPUSH PRN (15:25)
[2024-08-13] MEDS: diphenhydrAMINE HCL 25 MG CAPSULE (FP) PO ONE (00:37)
[2024-08-13 07:47] LABS: HEMATOCRIT 34.8 % (32.4-45.2); HEMOGLOBIN 10.9 GM/dL (10.7-15.3); MCH 32.7 pg (25.7-33.7); MCHC 31.4 g/dl (32.0-36.0); MEAN CELL VOLUME 104.3 fl (80-96); MEAN PLT VOLUME 7.7 fl (7.5-11.1); PLATELET COUNT 183 10^3/uL (134-434); RBC 3.34 M/mm3 (3.60-5.2); RDW 16.6 % (11.6-15.6); WHITE BLOOD COUNT 5.8 K/mm3 (4.0-10.0)
[2024-08-13 08:10] LABS: POTASSIUM 4.1 mmol/L (3.5-5.1)
[2024-08-13 08:17] LABS: ALBUMIN 2.8 g/dl (3.4-5.0); CALCIUM 8.4 mg/dL (8.5-10.1)
[2024-08-13 08:18] LABS: BLOOD UREA NITROGEN 29.8 mg/dL (7-18)
[2024-08-13 08:20] LABS: CREATININE 3.3 mg/dL (0.55-1.3)
[2024-08-13 08:22] LABS: BILIRUBIN,TOTAL 0.4 mg/dL (0.2-1); TOT PROT 6.1 g/dl (6.4-8.2)
[2024-08-13] MEDS: diphenhydrAMINE HCL 25 MG CAPSULE (FP) PO PRN (09:33)
[2024-08-13] MEDS: CALMINE 3% AND PRAMOXINE 1% 118 ML BOTTLE TP PRN (18:31)
[2024-08-13] MEDS: oxyCODONE HCL 5 MG TABLET PO PRN (20:04)
[2024-08-14] MEDS: ACETAMINOPHEN 325 MG TABLET (FP) PO PRN (06:54)
[2024-08-14 07:28] LABS: HEMATOCRIT 33.2 % (32.4-45.2); HEMOGLOBIN 10.8 GM/dL (10.7-15.3); MCH 33.5 pg (25.7-33.7); MCHC 32.4 g/dl (32.0-36.0); MEAN CELL VOLUME 103.4 fl (80-96); MEAN PLT VOLUME 7.8 fl (7.5-11.1); PLATELET COUNT 185 10^3/uL (134-434); RBC 3.22 M/mm3 (3.60-5.2); RDW 17.1 % (11.6-15.6); WHITE BLOOD COUNT 5.2 K/mm3 (4.0-10.0)
[2024-08-14 07:56] LABS: POTASSIUM 4.6 mmol/L (3.5-5.1)
[2024-08-14 08:25] LABS: CALCIUM 8.6 mg/dL (8.5-10.1)
[2024-08-14 08:26] LABS: ALBUMIN 2.7 g/dl (3.4-5.0)
[2024-08-14 08:28] LABS: CREATININE 4.6 mg/dL (0.55-1.3)
[2024-08-14 08:30] LABS: BILIRUBIN,TOTAL 0.8 mg/dL (0.2-1); TOT PROT 5.8 g/dl (6.4-8.2)
[2024-08-14] MEDS ORDERED: SODIUM CHLORIDE 250 ML IV PRN (11:50)
[2024-08-14] MEDS: EPOETIN ALFA-EPBX 4,000 UNIT/ML VIAL SQ ONE (14:00)
[2024-08-15 07:21] LABS: HEMATOCRIT 30.9 % (32.4-45.2); HEMOGLOBIN 10.1 GM/dL (10.7-15.3); MCH 33.5 pg (25.7-33.7); MCHC 32.5 g/dl (32.0-36.0); MEAN CELL VOLUME 102.9 fl (80-96); MEAN PLT VOLUME 7.5 fl (7.5-11.1); PLATELET COUNT 160 10^3/uL (134-434); RBC 3.01 M/mm3 (3.60-5.2); WHITE BLOOD COUNT 4.6 K/mm3 (4.0-10.0)
[2024-08-15 07:46] LABS: POTASSIUM 3.9 mmol/L (3.5-5.1)
[2024-08-15 07:50] LABS: ALBUMIN 2.6 g/dl (3.4-5.0); BLOOD UREA NITROGEN 25.7 mg/dL (7-18)
[2024-08-15 07:53] LABS: CREATININE 3.6 mg/dL (0.55-1.3)
[2024-08-15 07:55] LABS: BILIRUBIN,TOTAL 0.5 mg/dL (0.2-1); TOT PROT 5.5 g/dl (6.4-8.2)
[2024-08-15] MEDS ORDERED: SODIUM CHLORIDE 250 ML IV PRN (11:10)
[2024-08-16 08:03] LABS: POTASSIUM 4.7 mmol/L (3.5-5.1)
[2024-08-16 08:11] LABS: HEMATOCRIT 31.6 % (34.1-44.9); MCHC 31.6 g/dl (32.2-35.5); MEAN PLT VOLUME 9.6 fl (9.4-12.3); PLATELET COUNT # 170 x10^3/uL (182-369); RDW 17.1 % (12.2-17.1)
[2024-08-16 08:13] LABS: CALCIUM 8.7 mg/dL (8.5-10.1)
[2024-08-16 08:14] LABS: ALBUMIN 2.8 g/dl (3.4-5.0); BLOOD UREA NITROGEN 39.1 mg/dL (7-18); MAGNESIUM 2.1 mg/dL (1.8-2.4)
[2024-08-16 08:16] LABS: CREATININE 4.6 mg/dL (0.55-1.3)
[2024-08-16 08:17] LABS: PHOSPHOROUS 3.2 mg/dL (2.5-4.9)
[2024-08-16 08:18] LABS: BILIRUBIN,TOTAL 0.7 mg/dL (0.2-1); TOT PROT 5.9 g/dl (6.4-8.2)
[2024-08-16] MEDS: EPOETIN ALFA-EPBX 4,000 UNIT/ML VIAL IVPUSH ONE (12:20)
[2024-08-16] MEDS: BENZONATATE 200 MG CAPSULE PO PRN (21:06)
[2024-08-16] MEDS: MUPIROCIN 2% TOPICAL OINTMENT 22 GM TUBE TP SCH (21:09)
[2024-08-16] MEDS: oxyCODONE HCL 5 MG TABLET PO ONE (22:51)
[2024-08-17 07:56] LABS: HEMATOCRIT 30.1 % (34.1-44.9); HEMOGLOBIN 9.5 g/dL (11.2-15.7); MCHC 31.6 g/dl (32.2-35.5); MEAN CELL VOLUME 106.4 fl (79.4-94.8); PLATELET COUNT # 147 x10^3/uL (182-369); RDW 17.7 % (12.2-17.1)
[2024-08-17 08:17] LABS: POTASSIUM 4.2 mmol/L (3.5-5.1)
[2024-08-17 08:27] LABS: ALBUMIN 2.8 g/dl (3.4-5.0); CALCIUM 8.4 mg/dL (8.5-10.1); MAGNESIUM 2.1 mg/dL (1.8-2.4)
[2024-08-17 08:28] LABS: BLOOD UREA NITROGEN 23.9 mg/dL (7-18)
[2024-08-17 08:30] LABS: CREATININE 3.2 mg/dL (0.55-1.3)
[2024-08-17 08:31] LABS: PHOSPHOROUS 3.2 mg/dL (2.5-4.9)
[2024-08-17 08:32] LABS: BILIRUBIN,TOTAL 0.5 mg/dL (0.2-1); TOT PROT 5.7 g/dl (6.4-8.2)
[2024-08-17] MEDS ORDERED: SODIUM CHLORIDE 250 ML IV PRN (18:18)
[2024-08-17] MEDS ORDERED: oxyCODONE HCL 5 MG TABLET PO PRN (23:14)
[2024-08-17] MEDS: oxyCODONE HCL 5 MG TABLET PO ONE (23:24)
[2024-08-18 09:17] VITALS: RESP 18
[2024-08-18] MEDS ORDERED: LORazepam 0.5 MG TABLET PO ONE (09:45)
[2024-08-18] MEDS: EPOETIN ALFA-EPBX 10,000 UNIT/ML VIAL IVPUSH ONE (12:02)
[2024-08-18] MEDS: LORazepam 0.5 MG TABLET PO ONE (13:40)
[2024-08-18 17:53] VITALS: BP 149/81; PULSE 81; TEMP 98.1
== END 2024-08-18 19:27 | disposition home or self-care (01) | DRG 871 ==
LOC: JER 12:20 → JERBED 14:30 → J4S 19:05 → JICU 08-04 10:48 → J7W 08-07 17:50 → J8W 08-08 14:03 → J4W 08-10 13:08
PROVIDERS: ADMIT Internal Medicine; ATTEND Internal Medicine
PROC: 0W9930Z Drainage of Right Pleural Cavity with Drainage Device, Percutaneous Approach (ICD-10-PCS; principal; 2024-08-10)
PROC: 5A1D70Z Performance of Urinary Filtration, Intermittent, Less than 6 Hours Per Day (ICD-10-PCS; 2024-08-18)
DX: A41.9 Sepsis, unspecified organism (principal); J18.9 Pneumonia, unspecified organism; J96.02 Acute respiratory failure with hypercapnia; N18.6 End stage renal disease; R65.21 Severe sepsis with septic shock; J96.01 Acute respiratory failure with hypoxia; I12.0 Hypertensive chronic kidney disease with stage 5 chronic kidney disease or end stage renal disease; T86.12 Kidney transplant failure; Z94.0 Kidney transplant status; J90 Pleural effusion, not elsewhere classified; D63.8 Anemia in other chronic diseases classified elsewhere; Z99.2 Dependence on renal dialysis; D69.6 Thrombocytopenia, unspecified; E11.22 Type 2 diabetes mellitus with diabetic chronic kidney disease; R04.0 Epistaxis; E87.70 Fluid overload, unspecified; E83.39 Other disorders of phosphorus metabolism
CPT/HCPCS: 0241U-QW; 32557; 36415; 71045-TC-FY; 76604-TC; 80048; 80053; 80061; 82042; 82150; 82465; 82803; 82945; 82962; 83036; 83605; 83615; 83735; 83880; 83986; 84100; 84157; 84443; 84478; 84484; 85025; 85027; 85610; 85730; 86803; 87040; 87070; 87075; 87081; 87102; 87116; 87205; 87206; 87210; 87340; 87517; 88108; 88305-TC; 93005; 93010; 93306-TC; 93970-TC; 94640; 94660; 97116-GP; 97162-GP; 99285-25; J0131; J1644; P9047; Q5106